=== PATIENT | male | born 1935 | race African-American/Black ===

== ENCOUNTER 2018-03-17 18:57 | Inpatient (IN) | payer MEDICARE, MEDICAID ==
[~2018-03-17] VITALS: Ht 170.2 cm; Wt 88.5 kg
[~2018-03-17 18:57] MED LIST: AMLO5TAB9 PO; FOLI1TAB16 PO; LEVE500T9 PO; METO-295 PO; QUET100T PO; TAMS0.4C34 PO; THIA100T13 PO
--- NOTE | 2018-03-17 19:16 | NUR ---
PT YAYA FROM THE STREETS; C/O "SEIZURE AND PROSTATE PROBLEMS", REPORT OF SZ TODAY; PT AAOX2-3, RESPIRATIONS EVEN AND UNLABORED, NO SOB, NAD NOTED, PT ON MONITOR. PENDING ER PROVIDER MIRELLA
--- NOTE | 2018-03-17 19:40 | NUR ---
URINE COLLECTED AND SENT TO LAB
[2018-03-17 20:26] LABS: APPEARANCE,URINE Slightly Cloudy (CLEAR); BILIRUBIN,URINE SMALL (NEGATIVE); BLOOD, URINE Trace-lysed Ery/uL (NEGATIVE); COLOR,URINE Yellow (YELLOW); KETONES,URINE Trace (NEGATIVE); LEUKOCYTE ESTERASE ,URINE Small (NEGATIVE); NITRITE, URINE Negative (NEGATIVE); PH,URINE 5.5 (5.0-8.0); PROTEIN,URINE 30 mg/dl (NEGATIVE); UGLUCOSE Negative (NEGATIVE); UROBILINOGEN,URINE 0.2 EU/dL (0.2)
[2018-03-17] MEDS ORDERED: LEVETIRACETAM (500MG) 500 MG/5 ML VIAL IV ONE (20:29)
[2018-03-17] MEDS ORDERED: LEVETIRACETAM (500MG) 500 MG in IV NS 0.9% 100 ML IV SCH (20:30)
[2018-03-17 20:39] LABS: BASOPHILS % (AUTO) 0.4 % (0.0-2.0); EOSINOPHILS % (AUTO) 0.8 % (0.0-6.0); HEMATOCRIT 36 % (39-51); HEMOGLOBIN 11.5 g/dL (13.5-17.5); LYMPHOCYTES # (AUTO) 1.7 /CMM (0.8-4.8); LYMPHOCYTES % (AUTO) 44.9 % (20.0-44.0); MEAN CORPUSCULAR HGB CONC 32 g/dl (31.0-36.0); MEAN CORPUSCULAR VOLUME 100 fL (80-96); MONOCYTES # (AUTO) 0.8 /CMM (0.1-1.30); NEUTROPHILS # (AUTO) 1.2 /CMM (1.8-8.9); NEUTROPHILS % (AUTO) 32.9 % (43.0-81.0); PLATELET COUNT (AUTO) 183 /CMM (150-450); RED BLOOD CELL COUNT(AUTO) 3.61 MIL/uL (4.5-6.0); WHITE BLOOD COUNT (AUTO) 3.8 K/uL (4.3-11.0)
[2018-03-17 20:58] LABS: ALANINE AMINOTRANSFERASE 52 U/L (12-78); ALCOHOL, BLOOD < 3 mg/dL (0-0); ALKALINE PHOSPHATASE 70 U/L (46-116); ASPARTATE AMINOTRANSFERASE 85 U/L (15-37); BILIRUBIN,DIRECT 0.3 mg/dL (0.0-0.2); BILIRUBIN,TOTAL 0.8 mg/dL (0.2-1.0); CALCIUM, SERUM 8.7 mg/dL (8.5-10.1); CARBON DIOXIDE 23 mmol/L (21-32); CHLORIDE 104 mmol/L (98-107); CREATININE 1.1 mg/dL (0.6-1.3); GLUCOSE 90 mg/dL (74-106); POTASSIUM 3.5 mmol/L (3.5-5.1); SODIUM SERUM 136 mmol/L (136-145); TOTAL PROTEIN, SERUM 7.4 g/dL (6.4-8.2); UREA NITROGEN, BLOOD 17 mg/dL (7-18)
[2018-03-17 21:05] LABS: ACETAMINOPHEN 0 ug/ml (10-30); SALICYLATE 0.9 mg/dL (2.8-20.0)
[2018-03-17 21:10] LABS: BACTERIA,URINE 2+ /HPF (None Seen)
[2018-03-17 21:19] LABS: BAND % (MANUAL) 1 % (0.0-5.0); LYMPHOCYTES % (MANUAL) 36 % (16-48); MONOCYTES % (MANUAL) 14 % (0-11.0); NEUTROPHILS % (MANUAL) 46 (42-76); REACTIVE LYMPHOCYTES 3 % (0-0)
[2018-03-17] MEDS ORDERED: PIPERACILLIN /TAZOBACTAM 3.375 G VIAL IV ONE (21:58)
--- NOTE | 2018-03-17 21:59 | NUR ---
Pt is assigned to [facility]#: 311-1, DX: Seizure/UTI, and accepting MD: Dr Delcid.
[2018-03-17] MEDS ORDERED: PIPERACILLIN /TAZOBACTAM 3.375 G in IV D5W 50 ML IV ONE (22:00)
--- NOTE | 2018-03-17 22:31 | NUR ---
REPORT GIVEN TO KELL HEALY FOR MARIANN
[2018-03-17 22:45] VITALS: BP 128/71
--- NOTE | 2018-03-17 22:45 | NUR ---
RECEIVED PATIENT FROM ER FOR DX SEIZURE; UTI. PATIENT AO X 2, ABLE TO MAKE NEEDS KNOWN. NO ACUTE DISTRESS NOTED. IV PATENT, INTACT; FLUSHED. SKIN INTACT. PATIENT REFUSING TELE BOX AT THIS TIME. SAFETY REMINDERS GIVEN. ON LOW BED WITH BILATERAL UPPER SIDE RAILS UP. CALL SOLARES WITHIN EASY REACH. WILL CONTINUE TO MONITOR. WAITING FOR ADMISSION ORDERS.
--- NOTE | 2018-03-17 22:52 | NUR ---
PT TRANSFERRED TO ROOM 311-1 TELE VIA ACLS PROTOCOL
[2018-03-17 23:00] VITALS: BP 128/71
[2018-03-18] MEDS ORDERED: MAGNESIUM HYDROXIDE 30 ML UDC PO PRN (01:00)
[2018-03-18] MEDS ORDERED: ACETAMINOPHEN 325 MG TABLET PO PRN (01:00)
[2018-03-18] MEDS ORDERED: HYDROCODONE/APAP 5/325MG 1 EACH TABLET PO PRN (01:00)
[2018-03-18] MEDS ORDERED: Z GUARD REMEDY 2 OZ OINT TP PRN (01:00)
[2018-03-18] MEDS ORDERED: ONDANSETRON HCL/PF 4 MG/2 ML VIAL IVP PRN (01:00)
[2018-03-18] MEDS ORDERED: CEFTRIAXONE 1 G VIAL ONE ×2 (02:09)
[2018-03-18] MEDS ORDERED: CEFTRIAXONE 1 G in IV D5W 50 ML IV SCH (02:30)
--- NOTE | 2018-03-18 02:45 | NUR ---
PATIENT AGREED TO HAVE TELE BOX APPLIED. TELE READING SINUS RHYTHM HR 75.
--- NOTE | 2018-03-18 06:10 | NUR ---
PATIENT ASLEEP, EASILY AROUSABLE. RESPIRATIONS EVEN. NO SIGNS OF PAIN NOTED. DUE MED GIVEN WITH NO ASE NOTED. NEEDS ATTENDED. KEPT CLEAN, DRY, AND COMFORTABLE. SAFETY PRECAUTIONS AND COMFORT MEASURES IN PLACE. WILL GIVE REPORT TO DAY SHIFT FOR CONTINUITY OF CARE.
[2018-03-18 06:27] LABS: BASOPHILS % (AUTO) 0.4 % (0.0-2.0); EOSINOPHILS % (AUTO) 1.2 % (0.0-6.0); HEMATOCRIT 33 % (39-51); HEMOGLOBIN 10.9 g/dL (13.5-17.5); LYMPHOCYTES # (AUTO) 1.7 /CMM (0.8-4.8); LYMPHOCYTES % (AUTO) 49.5 % (20.0-44.0); MEAN CORPUSCULAR HGB CONC 33 g/dl (31.0-36.0); MEAN CORPUSCULAR VOLUME 96 fL (80-96); MONOCYTES # (AUTO) 0.7 /CMM (0.1-1.30); MONOCYTES % (AUTO) 21.7 % (2.0-12.0); NEUTROPHILS # (AUTO) 0.9 /CMM (1.8-8.9); NEUTROPHILS % (AUTO) 27.2 % (43.0-81.0); PLATELET COUNT (AUTO) 178 /CMM (150-450); WHITE BLOOD COUNT (AUTO) 3.4 K/uL (4.3-11.0)
--- NOTE | 2018-03-18 07:10 | NUR ---
RN OPENING NOTES RECEIVED PATIENT IN BED RESTING. A/OX2-3, ABLE TO MAKE NEED KNOWN. NOT IN ANY FORM OF DISTRESS, NO SOB. DENIED PAIN OR DISCOMFORT AT THIS TIME. IV ACCESS INTACT AND PATENT. KEPT PATIENT SAFE AND COMFROTABLE. SEIZURES PRECAUTIONS INITIATED. BED IN LOW/LOCKED POSITION, SIDERAILS UPX2, CALL LIGHT IN REACH. WILL CONTINUE TO MONIOTR ACCORDINGLY.
[2018-03-18 07:26] LABS: ALANINE AMINOTRANSFERASE 47 U/L (12-78); ALBUMIN 2.5 g/dL (3.4-5.0); ALKALINE PHOSPHATASE 61 U/L (46-116); ASPARTATE AMINOTRANSFERASE 75 U/L (15-37); BILIRUBIN,TOTAL 0.6 mg/dL (0.2-1.0); CALCIUM, SERUM 8.1 mg/dL (8.5-10.1); CARBON DIOXIDE 24 mmol/L (21-32); CHLORIDE 105 mmol/L (98-107); CREATININE 1.1 mg/dL (0.6-1.3); GLUCOSE 96 mg/dL (74-106); MAGNESIUM 1.5 mg/dL (1.8-2.4); PHOSPHORUS 2.5 mg/dL (2.5-4.9); POTASSIUM 3.4 mmol/L (3.5-5.1); SODIUM SERUM 138 mmol/L (136-145); TOTAL PROTEIN, SERUM 6.5 g/dL (6.4-8.2); UREA NITROGEN, BLOOD 14 mg/dL (7-18)
[2018-03-18 08:00] VITALS: BP 143/88
[2018-03-18 08:14] LABS: CHOLESTEROL 149 mg/dL (<200); HDL CHOLESTEROL 73 mg/dL (40-60); LDL 72 mg/dL (0-99); THYROID STIMULATING HORMONE 1.359 uIU/mL (0.358-3.74); TRIGLYCERIDES 67 mg/dL (30-150)
[2018-03-18 08:33] LABS: FREE PSA 0.08 ng/mL (0.00-45); PROSTATE SPECIFIC ANTIGEN SCR 0.44 ng/mL (0.00-4.00)
[2018-03-18] MEDS: FOLIC ACID 1 MG TABLET PO SCH (08:48)
[2018-03-18] MEDS: DOCUSATE SODIUM 100 MG CAPSULE PO SCH ×2 (08:48→16:35)
[2018-03-18] MEDS: LEVETIRACETAM SOL (5 ML) 100 MG/ML UDC PO SCH ×2 (08:48→21:05)
[2018-03-18] MEDS: PANTOPRAZOLE 40 MG TABLET.DR PO SCH (08:48)
[2018-03-18] MEDS: THIAMINE HCL 100 MG TABLET PO SCH (08:50)
[2018-03-18] MEDS: AMLODIPINE BESYLATE 5 MG TABLET PO SCH (08:50)
[2018-03-18] MEDS ORDERED: POTASSIUM CHLORIDE 20 MEQ TAB.PRT.SR PO SCH (11:30)
[2018-03-18] MEDS: Magnesium 1GM/D5W 100ML PREMIX 100 ML IV SCH ×2 (11:58→13:09)
[2018-03-18 16:00] VITALS: BP 134/69
--- NOTE | 2018-03-18 18:00 | NUR ---
RN NOTES IV ACCESS ON RIGHT AC WAS NOT PATENT, NOT FLUSHING. REMOVED IV ACCESS, APPLIED PRESSURE, NO BLEEDING, NO COMPLICATIONS. ATTEMPTED TO REINSERT IV ACCESS 2X BUT COULDNT GET THE VEIN. PATIENT REFUSED 3RD ATTEMPT STATING COME BACK LATER. WILL ENDORSED INSERTION TO HEARING AID DISPENSER RN.
--- NOTE | 2018-03-18 19:00 | NUR ---
RN MS NOTES RECEIVED PATIENT IN BED AWAKE ALERT AND ORIENTED X 2-3, RESPIRATIONS EVEN AND UNLABORED WITH EQUAL RISE AND FALL OF CHEST. SEIZURE PRECAUTIONS IN PLACE,SAFETY PRECAUTIONS IN PLACE, LOW BED AND LOCKED, CALL ALARM KEPT WITHIN REACH, FLUIDS OFFERED URINAL OFFERED, IV SITE TO LEFT FA #22G INTACT AND PATENT INSERTED, ORIENTED TO STAFF AND CALL LIGHT REMAINS COMFORTABLE AT THIS TIME, ALL NEEDS ATTENDED WILL CONTINUE TO MONITOR AND ENDORSE TO NEXT SHIFT. Addendum: 03/18/18 at 2313 by FINN ZENDEJAS RN RN OPENING NOTES
--- NOTE | 2018-03-18 19:13 | NUR ---
RN CLOSING NOTES PATIENT IN STABLE CONDITION. ALL NEEDS ATTENDED AND PROVIDED. ALL DUE MEDICATIONS GIVEN ORDERED. KEPT PATENT SAFE AND COMFORTABLE. BED IN LOW/LOCKED POSITION, SIDERAILS UPX2, CALL LIGHT IN REACH. WILL CONTINUE TO MONITOR ACCORDINGLY.
--- NOTE | 2018-03-18 19:57 | NUR ---
RN MS NOTES PATIENT COMPLAINT OF PAIN TO GENERALIZED BODY UNABLE TO SCALE. PATIENT YELLING OUT "PAIN". REQUESTING FOR PAIN MEDICATION NORCO 5/325MG OFFERED AND GIVEN ORDERED VS WNL 107/67,76,18,98%RA WILL CONTINUE TO MONITOR FOR EFFECTIVENESS.
[2018-03-18 20:00] VITALS: BP 107/67
[2018-03-18] MEDS: QUETIAPINE FUMARATE 100 MG TABLET PO SCH (21:05)
[2018-03-18] MEDS: TAMSULOSIN 0.4 MG CAP.SR.24H PO SCH (21:05)
--- NOTE | 2018-03-19 06:33 | NUR ---
RN MS CLOSING NOTES PATIENT IN BED SLEEPING BUT EASILY AWAKENED ALERT AND ORIENTED X 2-3, RESPIRATIONS EVEN AND UNLABORED WITH EQUAL RISE AND FALL OF CHEST. SEIZURE PRECAUTIONS IN PLACE,SAFETY PRECAUTIONS IN PLACE, LOW BED AND LOCKED, CALL ALARM KEPT WITHIN REACH, FLUIDS OFFERED URINAL OFFERED, IV SITE TO LEFT FA #22G INTACT AND PATENT INSERTED, BED ALARM ON. URINAL OFFERED REPOSITIONED, KEPT CLEAN CALL LIGHT REMAINS WITHIN REACH COMFORTABLE AT THIS TIME, ALL NEEDS ATTENDED WILL CONTINUE TO MONITOR AND ENDORSE TO NEXT SHIFT.
[2018-03-19 07:31] LABS: CALCIUM, SERUM 8.2 mg/dL (8.5-10.1); CARBON DIOXIDE 28 mmol/L (21-32); CHLORIDE 106 mmol/L (98-107); CREATININE 1.1 mg/dL (0.6-1.3); GLUCOSE 91 mg/dL (74-106); MAGNESIUM 1.7 mg/dL (1.8-2.4); POTASSIUM 3.5 mmol/L (3.5-5.1); SODIUM SERUM 139 mmol/L (136-145); UREA NITROGEN, BLOOD 14 mg/dL (7-18)
[2018-03-19 08:00] VITALS: BP 120/62
[2018-03-19] MEDS: FOLIC ACID 1 MG TABLET PO SCH (08:58)
[2018-03-19] MEDS: DOCUSATE SODIUM 100 MG CAPSULE PO SCH ×2 (08:58→17:00)
[2018-03-19] MEDS: AMLODIPINE BESYLATE 5 MG TABLET PO SCH (08:58)
[2018-03-19] MEDS: THIAMINE HCL 100 MG TABLET PO SCH (08:58)
[2018-03-19] MEDS: LEVETIRACETAM SOL (5 ML) 100 MG/ML UDC PO SCH ×2 (08:58→21:00)
[2018-03-19] MEDS: PANTOPRAZOLE 40 MG TABLET.DR PO SCH (09:02)
[2018-03-19] MEDS: Magnesium 1GM/D5W 100ML PREMIX 100 ML IV SCH ×2 (10:01→12:04)
--- NOTE | 2018-03-19 11:22 | NUR ---
Social service consult requested by Dr. Delcid for homelessness. Pt. is a 82 year old -Citizen Of [place] male who was admitted to [facility] for Seizures. SW attempted to meet with the pt., however, pt. is not cooperating at this time. SW to come back at a later time to assess when pt. is more cooperative.
--- NOTE | 2018-03-19 14:46 | NUR ---
PATIENT WAS UNCOOPERATIVE WITH DUPLEX VENOUS US. PATIENT WAS YELLING "GET OUT NOW!!". US TECH WILL COME BACK LATER. Addendum: 03/19/18 at 1450 by BARBARA CHAVARRIA EXPLAINED SEVERAL TIMES BUT STILL WONT COOPERATE.
[2018-03-19 16:00] VITALS: BP 116/63
--- NOTE | 2018-03-19 19:00 | NUR ---
RN MS OPENING NOTES RECEIVED PATIENT IN BED AWAKE ALERT AND ORIENTED X 2, RESPIRATIONS EVEN AND UNLABORED WITH EQUAL RISE AND FALL OF CHEST. SEIZURE PRECAUTIONS IN PLACE,SAFETY PRECAUTIONS IN PLACE, LOW BED AND LOCKED, CALL ALARM KEPT WITHIN REACH, FLUIDS OFFERED URINAL OFFERED, IV SITE TO LEFT FA #22G SL NO REDNESS NO INFILTRATION PRESENT, ORIENTED TO STAFF AND CALL LIGHT REMAINS COMFORTABLE AT THIS TIME BED LOW AND LOCKED BED ALARM IN PLACE, ALL NEEDS ATTENDED WILL CONTINUE TO MONITOR AND ATTEND TO NEEDS.
--- NOTE | 2018-03-19 19:33 | NUR ---
RN CLOSING NOTES PATIENT IN STABLE CONDITION. ALL NEEDS ATTENDED AND PROVIDED. ALL DUE MEDICATIONS ADMINISTERED ORDERED. KEPT PATIENT SAFE AND COMFORTABLE. BED IN LOW/LOCKED POSITION, SIDERAILS UPX2, CALL LIGHT IN REACH. ENDORSED TO NIGHT RN FOR MARIANN.
--- NOTE | 2018-03-19 19:34 | NUR ---
RN MS NOTES CALLED AND SPOKE TO PHARMACY REGARDING ROCEPHIN AND NO SET SCHEDULED TIME TO GIVE AND MED UNAVAILABLE AT THIS TIME, PER PHARM WILL SCHEDULE AND BRING MED.
[2018-03-19 20:00] VITALS: BP 110/59
[2018-03-19] MEDS ORDERED: CEFTRIAXONE 1 G in IV D5W 50 ML IV SCH (20:00)
--- NOTE | 2018-03-19 20:00 | NUR ---
RN MS NOTES PATIENT REFUSED ANTIBIOTIC ROCEPHIN ADMINISTRATION X 3, EXPLAINED RISKS AND BENEFITS PATIENT STATED." I DONT WANT IT!"
--- NOTE | 2018-03-19 21:00 | NUR ---
RN MS NOTES PATIENT REFUSED KEEPRA X 3, EXPLAINED RISKS AND BENEFITS PATIENT YELLING OUT." I DONT WANT IT, KEEP IT!"
[2018-03-19] MEDS: QUETIAPINE FUMARATE 100 MG TABLET PO SCH (21:23)
[2018-03-19] MEDS: TAMSULOSIN 0.4 MG CAP.SR.24H PO SCH (21:23)
--- NOTE | 2018-03-19 21:30 | NUR ---
RN MS NOTES PATIENT REFUSED FLOMAX AND SEROQUEL X 3, EXPLAINED RISKS AND BENEFITS PATIENT YELLING OUT." I DONT WANT IT, KEEP IT!"
--- NOTE | 2018-03-20 06:20 | NUR ---
RN MS CLOSING NOTES PATIENT IN BED SLEEPING BUT EASILY AROUSABLE, RESPIRATIONS EVEN AND UNLABORED WITH EQUAL RISE AND FALL OF CHEST, LEFT FA #22 SL IV SITE INTACT, AND PATENT, NO REDNESS, NO INFILTRATION PRESENT, URINAL AND PERINEAL CARE OFFERED, SAFETY PRECAUTIONS IN PLACE ALL NEEDS ATTENDED, LOW BED AND LOCKED, CALL ALARM IN PLACE, REMAINS COMFORTABLE, WILL CONTINUE TO MONITOR AND ENDORSE TO NEXT SHIFT.
--- NOTE | 2018-03-20 07:15 | NUR ---
MS RN INITIAL NOTES Report received at bedside. Patient received in bed, sleeping comfortably, easily aroused. Denies any pain at the moment. No SOB/labored breathing noted. Not in any apparent distress. Safety measures in place. Will continue to monitor and assess patient
[2018-03-20 07:42] LABS: CALCIUM, SERUM 8.1 mg/dL (8.5-10.1); CARBON DIOXIDE 25 mmol/L (21-32); CHLORIDE 104 mmol/L (98-107); CREATININE 1.1 mg/dL (0.6-1.3); GLUCOSE 96 mg/dL (74-106); MAGNESIUM 1.7 mg/dL (1.8-2.4); POTASSIUM 3.8 mmol/L (3.5-5.1); SODIUM SERUM 137 mmol/L (136-145); UREA NITROGEN, BLOOD 16 mg/dL (7-18)
[2018-03-20 08:00] VITALS: BP 107/55
[2018-03-20] MEDS: PANTOPRAZOLE 40 MG TABLET.DR PO SCH (08:17)
[2018-03-20] MEDS: THIAMINE HCL 100 MG TABLET PO SCH (08:23)
[2018-03-20] MEDS: DOCUSATE SODIUM 100 MG CAPSULE PO SCH (08:23)
[2018-03-20 08:24] VITALS: BP 107/55
[2018-03-20] MEDS: FOLIC ACID 1 MG TABLET PO SCH (08:24)
[2018-03-20] MEDS: AMLODIPINE BESYLATE 5 MG TABLET PO SCH (08:24)
[2018-03-20] MEDS: LEVETIRACETAM SOL (5 ML) 100 MG/ML UDC PO SCH (08:24)
[2018-03-20] MEDS: Magnesium 1GM/D5W 100ML PREMIX 100 ML IV SCH ×2 (08:55→10:52)
--- NOTE | 2018-03-20 11:15 | NUR ---
MS RN NOTES Patient verbalized the desire to leave AMA. Requested for patient to stay. MD aware: Ordered for psych eval and consult.
--- NOTE | 2018-03-20 11:19 | NUR ---
MS RN NOTES Spoke with Massimo from [employer] and confirm receipt of faxed face sheet for psych consult and eval.
--- NOTE | 2018-03-20 12:52 | NUR ---
SW attempted to speak with pt. again today. Pt. communicated with SW by nodding his head yes or no when SW was asking questions. Pt. states he is homeless. Pt. denies drugs and alcohol use. Pt. did not state how long he has been homeless or where he has been staying in the streets. When SW inquired with pt. if he is able to walk, pt. shrugged his shoulders but would not speak. SW inquired with pt. if he would like placement. Pt. nodded his head "yes." BRUNILDA updated major case detective Marychuy Martin regarding aforementioned information.
--- NOTE | 2018-03-20 14:55 | NUR ---
BRUNILDA received a call from pt's RN stating that pt. wants to leave AMA. BRUNILDA met with pt. bedside. Pt. is alert and oriented x 4. Pt. is talking and ambulating with a cane. Pt. earlier refused to speak to SW and only communicated with head nods. SW encouraged pt. to stay, however pt. is adamant about leaving. BRUNILDA gave pt. copy of [facility] [id number]. Pt. states he wants to go and get his medications. BRUNILDA informed pt. he can get his medication here at the hospital if he continues to stay and not leave AMA. Pt. is adamant on leaving AMA. BRUNILDA gave pt. warm clothing. Homeless Patient Waiver Form was signed by the pt. and placed in pt's chart.
--- NOTE | 2018-03-20 15:40 | NUR ---
MS RN - AMA NOTES Patient is very adamant about leaving against medical advice (AMA). Instructed and requested to stay a little longer until MD (Psych MD) comes to see him before leaving but patient refused, acting out and yelling that he wants to leave. Patient left at 1510. For precaution, IV cath removed with cath tip intact and no bleeding noted AND ID band removed. boning room worker was advised that patient is determined to leave AMA. boning room worker came to see the patient, provided resources and had homeless waiver signed by patient. Exit care provided to patient and discharge paper signed. Explained risks vs benefits. Patient teaching provided and emphasized. Patient still determined to leave. Belongings with patient: belongings form signed. MD made aware. Charge Nurse made aware. Cafeteria Server aware. Patient not in any apparent distress. Assisted to changed.
--- NOTE | 2018-03-20 17:07 | NUR ---
Incident report done.
[2019-03-18] MEDS ORDERED: CEFTRIAXONE 1 G in IV D5W 50 ML IV SCH (22:00)
== END 2018-03-20 15:00 | disposition left against medical advice (07) | DRG 53 ==
LOC: ER 19:02 → TELE 22:02 → MED 03-18 10:45
PROVIDERS: ADMIT Internal Medicine; ATTEND Internal Medicine
DX: G40.909 Epilepsy, unspecified, not intractable, without status epilepticus (principal); E43 Unspecified severe protein-calorie malnutrition; E11.42 Type 2 diabetes mellitus with diabetic polyneuropathy; D68.59 Other primary thrombophilia; D53.9 Nutritional anemia, unspecified; F20.9 Schizophrenia, unspecified; I67.2 Cerebral atherosclerosis; N39.0 Urinary tract infection, site not specified; B96.89 Other specified bacterial agents as the cause of diseases classified elsewhere; Z16.11 Resistance to penicillins; N40.0 Benign prostatic hyperplasia without lower urinary tract symptoms; Z87.440 Personal history of urinary (tract) infections; Z59.0 Homelessness; F17.210 Nicotine dependence, cigarettes, uncomplicated; M19.90 Unspecified osteoarthritis, unspecified site; F31.9 Bipolar disorder, unspecified; Z68.30 Body mass index [BMI] 30.0-30.9, adult; Z74.09 Other reduced mobility; F10.11 Alcohol abuse, in remission; Y90.0 Blood alcohol level of less than 20 mg/100 ml; R60.0 Localized edema; E53.8 Deficiency of other specified B group vitamins; I10 Essential (primary) hypertension; Z87.820 Personal history of traumatic brain injury
CPT/HCPCS: 36415; 70450-TC; 71045-TC; 80048-TC; 80053-TC; 80061-TC; 80076-TC; 80305; 81000-TC; 83735-TC; 84100-TC; 84153-TC; 84154-TC; 84443-TC; 84484-TC; 85025-TC; 87081-TC; 87086-TC; 87186-TC; 93970-TC; G0378; G0480; J0696; J1953; J2543; J3475; J7030; J7050; J7060

== ENCOUNTER 2018-03-21 08:48 | Emergency (ER) | payer MEDICARE, MEDICAID ==
[~2018-03-21] VITALS: Ht 170.2 cm; Wt 63.5 kg
--- NOTE | 2018-03-21 09:04 | NUR ---
pt singed out AMA at 1500 yesterday , per pt was given papers and [place] went there for the night and states " didnt' work out'. PT AAOX3, VSS. DENIES ANY DISCOMFORT @ THIS TIME. PT SEEN & EVAL'D BY DR. COOK & WILL CONT TO MONITOR.
--- NOTE | 2018-03-21 11:08 | NUR ---
BRUNILDA received a call from Abdifatah in ED requesting for SW to see the pt. for homelessness. Pt. is a 82 year old male who was admitted to [facility] on 03/17/18 for epilepsy. Pt. left yesterday AMA from inpatient admission. SW had tried several times to encourage pt. to stay, however pt. was adamant on leaving. BRUNILDA met with pt. bedside. Pt. was lying in the bed with his cane bedside. Pt. is alert and oriented x 3. Pt. stated he did not like the senior care. BRUNILDA inquired with pt. if he receives any SSI and pt. did not reply. BRUNILDA offered pt. homeless senior care resources and [facility] resources, however, pt. declined stating " I have those from yesterday." Pt. elected to go back to streets. Pt. was given a walker, blanket, Tap card and snacks. Homeless Patient Waiver Form was signed by the pt. and placed in pt's chart. Dr. Knight and KELL Steinberg were informed of pt's discharge plan.
--- NOTE | 2018-03-21 11:15 | NUR ---
Patient discharged to home in stable condition. Written and verbal after care instructions given. Patient verbalizes understanding of instruction.
[2018-03-21 11:45] VITALS: BP 118/78
== END 2018-03-21 11:15 | disposition home or self-care (01) ==
LOC: ER 08:50
DX: M79.10 Myalgia, unspecified site (principal); I10 Essential (primary) hypertension; F17.200 Nicotine dependence, unspecified, uncomplicated; Z59.0 Homelessness; Z90.89 Acquired absence of other organs
CPT/HCPCS: 99281; A4606; Z7502

== ENCOUNTER 2019-11-03 08:44 | Inpatient (IN) | payer MEDICARE, MEDICAID ==
[~2019-11-03] VITALS: Ht 177.8 cm; Wt 66.7 kg
--- NOTE | 2019-11-03 08:52 | NUR ---
[email or web address], from [facility], "uncooperative, doesn't want to talk to anyone". Eyes open, but non-verbal at this time, refusing to answer questions.
[2019-11-03 09:32] LABS: BASOPHILS % (AUTO) 0.5 % (0.0-2.0); EOSINOPHILS % (AUTO) 1.3 % (0.0-6.0); HEMATOCRIT 41 % (39-51); HEMOGLOBIN 13.5 g/dL (13.5-17.5); LYMPHOCYTES # (AUTO) 2.1 /CMM (0.8-4.8); LYMPHOCYTES % (AUTO) 44.6 % (20.0-44.0); MEAN CORPUSCULAR HGB CONC 33 g/dl (31.0-36.0); MEAN CORPUSCULAR VOLUME 94 fL (80-96); MONOCYTES # (AUTO) 0.8 /CMM (0.1-1.30); MONOCYTES % (AUTO) 17.8 % (2.0-12.0); NEUTROPHILS # (AUTO) 1.7 /CMM (1.8-8.9); NEUTROPHILS % (AUTO) 35.8 % (43.0-81.0); PLATELET COUNT (AUTO) 228 /CMM (150-450); RED BLOOD CELL COUNT(AUTO) 4.32 MIL/uL (4.5-6.0); WHITE BLOOD COUNT (AUTO) 4.6 K/uL (4.3-11.0)
[2019-11-03 09:44] LABS: CALCIUM, SERUM 9.4 mg/dL (8.5-10.1); CARBON DIOXIDE 24 mmol/L (21-32); CHLORIDE 105 mmol/L (98-107); CREATININE 1.1 mg/dL (0.6-1.3); GLUCOSE 85 mg/dL (74-106); SODIUM SERUM 137 mmol/L (136-145); UREA NITROGEN, BLOOD 26 mg/dL (7-18)
--- NOTE | 2019-11-03 09:50 | NUR ---
PT TAKEN TO CT
[2019-11-03 09:51] LABS: ALANINE AMINOTRANSFERASE 58 U/L (12-78); ALBUMIN 2.6 g/dL (3.4-5.0); ALCOHOL, BLOOD < 3 mg/dL (0-0); ALKALINE PHOSPHATASE 163 U/L (46-116); ASPARTATE AMINOTRANSFERASE 101 U/L (15-37); BILIRUBIN,DIRECT 0.3 mg/dL (0.0-0.2); BILIRUBIN,TOTAL 0.6 mg/dL (0.2-1.0); TOTAL PROTEIN, SERUM 8.5 g/dL (6.4-8.2)
[2019-11-03 09:52] LABS: ACETAMINOPHEN 0 ug/ml (10-30); SALICYLATE 1.8 mg/dL (2.8-20.0)
[2019-11-03 10:08] LABS: APPEARANCE,URINE CLOUDY (CLEAR); COLOR,URINE YELLOW (YELLOW); UGLUCOSE NEGATIVE (NEGATIVE)
[2019-11-03 10:09] LABS: BILIRUBIN,URINE NEGATIVE (NEGATIVE); BLOOD, URINE TRACE Ery/uL (NEGATIVE); KETONES,URINE NEGATIVE (NEGATIVE); PH,URINE 7.5 (5.0-8.0); PROTEIN,URINE 1+ mg/dl (NEGATIVE)
[2019-11-03 10:10] LABS: LEUKOCYTE ESTERASE ,URINE 2+ (NEGATIVE); NITRITE, URINE POSITIVE (NEGATIVE)
[2019-11-03] MEDS ORDERED: CEFTRIAXONE 1GM BAG (ER ONLY) 50 ML IV ONE (10:21)
[2019-11-03] MEDS ORDERED: CEFTRIAXONE 1GM BAG (ER ONLY) 1 GM/50 ML PIGGYBACK IV ONE (10:30)
--- NOTE | 2019-11-03 10:46 | NUR ---
CALLED [facility]. BENCH CARPENTER WAS PAGED
[2019-11-03 10:49] LABS: LYMPHOCYTES % (MANUAL) 52 % (16-48); NEUTROPHILS % (MANUAL) 32 (42-76)
[2019-11-03 10:50] LABS: MONOCYTES % (MANUAL) 16 % (0-11.0)
[2019-11-03 10:57] LABS: WBC,URINE TOO NUMEROUS TO COUN /HPF (0-3)
[2019-11-03 10:58] LABS: BACTERIA,URINE Few /HPF (None Seen); SQUAMOUS EPITHELIAL CELL,UR Few /HPF (None Seen)
[2019-11-03] MEDS ORDERED: TEMA15CA PO (11:27)
[2019-11-03] MEDS ORDERED: FINA5TAB11 PO (11:27)
[2019-11-03] MEDS ORDERED: QUET50TA PO (11:27)
[2019-11-03] MEDS ORDERED: LOSA25TA27 PO (11:27)
[2019-11-03] MEDS ORDERED: DICY10CA13 PO (11:27)
[2019-11-03] MEDS ORDERED: DOCU-270 PO (11:27)
[2019-11-03] MEDS ORDERED: NIFE-35 PO (11:27)
[2019-11-03] MEDS ORDERED: OMEP20TA5 PO (11:27)
[2019-11-03] MEDS ORDERED: IBUP-1953 PO (11:27)
[2019-11-03] MEDS ORDERED: NITR100C PO (11:27)
[2019-11-03] MEDS ORDERED: SENN-175 PO (11:27)
--- NOTE | 2019-11-03 11:38 | NUR ---
covid swab sent to lab
[2019-11-03 12:40] VITALS: BP 161/86
--- NOTE | 2019-11-03 12:40 | NUR ---
Received patient via gurney. Patient present confused and disoriented; able to make needs known. Skin assessed and intact. IV to the left arm g 20 h/l , flushing well. No belongings. Patient oriented to room and educated to use call light for assistance, reinforcement needed. Bed alarm activated. SAfety precautions implemented. Adm. orders carried out.
--- NOTE | 2019-11-03 12:40 | NUR ---
report given to Arelis CASTORENA for kenny.
--- NOTE | 2019-11-03 12:46 | NUR ---
Wheeled patient via gurney accompanied by RN in no distress. RN at bedside to assume care.
[2019-11-03 13:00] VITALS: BP 161/86
[2019-11-03] MEDS ORDERED: TEMAZEPAM 15 MG CAPSULE PO PRN (13:00)
[2019-11-03] MEDS ORDERED: IBUPROFEN 600 MG TABLET PO PRN (13:00)
[2019-11-03 16:00] VITALS: BP 146/77
--- NOTE | 2019-11-03 16:00 | NUR ---
Patient became very aggressive; he is throwing things at ELEVATOR CONSTRU[employer] and yelling. Noted with trouble urinating and looks like in pain. DR. Wyman notified
--- NOTE | 2019-11-03 16:20 | NUR ---
Ativan 1mg IV Q4hr PRN ; Morphine 2 mg IV Q4hr PRN ordered per dr. Wyman
--- NOTE | 2019-11-03 16:28 | NUR ---
9:45am Geometry Teacher met with this patient at bedside in the ED. Patient was transferred from [facility]. Patient was alert and oriented x2. Patient was able to confirm where he was at [facility]. Patient was not able to provide information prior to that. Patient had a low voice and was redirected by this SW to provide any information possible. This patient reported that he had auditory and visual hallucination in the past stating they were different things. This SW to return when the patient is more alert and oriented to provide more information.
[2019-11-03] MEDS ORDERED: MORPHINE SULFATE INJ 2 MG/ML DISP.SYRIN IV PRN (16:30)
[2019-11-03] MEDS: DOCUSATE SODIUM 100 MG CAPSULE PO SCH (17:00)
[2019-11-03] MEDS: DICYCLOMINE HCL 10 MG CAPSULE PO SCH (18:00)
--- NOTE | 2019-11-03 18:44 | NUR ---
Patient is resting in bed at this time.Patient is confused. All needs attended. Safety precautions implemented and bed alarm activated. Will endorse to next shift .
--- NOTE | 2019-11-03 19:09 | NUR ---
MS/RN OPENING NOTES: RECEIVED PT AWAKE IN BED. A/OX1-2. SATURATING WELL ON RA. BREATHING EVEN AND UNLABORED. NO SOB NOTED, NO COMPLAINS OF PAIN AT THIS TIME. PER DAY SHIFT RN, PT IS NON COMPLIANT WITH MEDS AND TENDS TO GET AGITATED AND AGGRESSIVE. IN A CALM MANNER AT THIS TIME. USES THE URINAL. AMBULATORY WITH ASSIST. IV ON THE LEFT ARM #20G INTACT AND PATENT. SAFETY MEASURES ARE IN PLACE. BED IN LOW, LOCKED POSITION WITH SR UP X2. WILL MONITOR BEHAVIOR AND CONTINUE PLAN OF CARE THROUGHOUT THE SHIFT.
--- NOTE | 2019-11-03 20:03 | NUR ---
MS/RN NOTES: PT. REFUSES VITAL SIGNS. STARTED YELLING WHEN TOUCHED. BECAME AGGRESSIVE, EDUCATED ON RISKS AND BENEFITS AND PT STILL REFUSED.
--- NOTE | 2019-11-03 20:10 | NUR ---
Admitted from [facility] [phone]. Reports indicated that patient is homeless, unable to interview due to patient is not cooperative, refused to talk. Will refer to pediatric social worker in for homeless resources. Addendum: 11/03/19 at 2011 by ANAND HERNANDEZ RN Amended: Links added.
[2019-11-03] MEDS: LEVETIRACETAM (250 MG) 250 MG TABLET PO SCH (21:11)
[2019-11-03] MEDS: SENNOSIDES 8.6 MG TABLET PO SCH (21:11)
[2019-11-03] MEDS: TAMSULOSIN 0.4 MG CAP.SR.24H PO SCH (21:11)
--- NOTE | 2019-11-03 21:50 | NUR ---
MS/RN NOTES: PATIENT ABLE TO TAKE ALL DUE MEDS ORDERED. TOLERATED WELL. NOT AGITATED AT THIS TIME. WILL CONT PLAN OF CARE AND CONT TO MONITOR.
--- NOTE | 2019-11-04 00:06 | NUR ---
MS/RN NOTES: PATIENT REFUSED TO TAKE BENTYL 10MG 1CAP. EDUCATED ON THE RISKS AND BENEFITS X3. STILL REFUSED. WASTED MED VIA PYXIS. WILL CONT PLAN OF CARE AND CONT TO MONITOR
[2019-11-04 02:00] VITALS: BP 156/87
[2019-11-04] MEDS: DICYCLOMINE HCL 10 MG CAPSULE PO SCH ×4 (06:00→18:00)
--- NOTE | 2019-11-04 06:16 | NUR ---
MS/RN NOTES: PATIENT REFUSED TO TAKE BENTYL 10MG 1CAP. EDUCATED ON THE RISKS AND BENEFITS X3. STILL REFUSED. WILL CONT PLAN OF CARE AND CONT TO MONITOR
--- NOTE | 2019-11-04 06:46 | NUR ---
MS/RN CLOSING NOTES: PT. REMAINS AWAKE IN BED. A/OX1. SATURATING WELL ON RA. BREATHING EVEN AND UNLABORED. NO SOB NOTED, NO COMPLAINS OF PAIN AT THIS TIME. PT IS NON COMPLIANT WITH MEDS AND TENDS TO GET AGITATED AND AGGRESSIVE WHEN ASKED TO TAKE MEDS. IV ON THE LEFT ARM #20G INTACT AND PATENT. SAFETY MEASURES ARE IN PLACE. BED IN LOW, LOCKED POSITION WITH SR UP X2. WILL ENDORSE TO DAY SHIFT FOR MARIANN.
--- NOTE | 2019-11-04 07:00 | NUR ---
RN OPENING NOTES RECEIVED PATIENT IN BED RESTING. NOT IN ANY FORM OF DISTRESS. NO SOB. DENIED PAIN OR DISCOMFORT AT THIS TIME. BED IN LOW/LOCKED POSITION.SIDERAILS UPX2,CALL LIGHT IN REACH. WILL CONT TO MONITOR ACCORDINGLY.
[2019-11-04] MEDS: LORAZEPAM INJ 2 MG/ML VIAL IV PRN ×2 (07:50→16:01)
--- NOTE | 2019-11-04 07:50 | NUR ---
RN NOTES PATIENT NOTED GETTING OUT OF BED WITH UNSTEADY GAIT, YELLING, UNCOOPERATIVE, OUT OF CONTROL. CALLED SECURITY. WAS ABLE TO PUT PATIENT IN BED WITH MULTIPLE INSTRUCTIONS. CALLED DR DAKSHA MD GAVE ORDERS FOR RESTRAINTS. BEATRIZ SOFT WRIST RESTRAINTS APPLIED. ATIVAN 1MG IV GIVEN ORDERED FOR AGGRESSION. VSS. WILL MONITOR ACCORDINGLY.
[2019-11-04 08:00] VITALS: BP 161/76
[2019-11-04] MEDS: FINASTERIDE (5 MG) 5 MG TABLET PO SCH (08:38)
[2019-11-04] MEDS: DOCUSATE SODIUM 100 MG CAPSULE PO SCH ×2 (08:39→17:00)
[2019-11-04] MEDS: LEVETIRACETAM (250 MG) 250 MG TABLET PO SCH ×2 (08:39→21:28)
[2019-11-04] MEDS: PANTOPRAZOLE 40 MG TABLET.DR PO SCH (08:44)
[2019-11-04] MEDS ORDERED: NIFEdipine XL (30MG) 30 MG TAB PO SCH (09:00)
[2019-11-04] MEDS: CEFTRIAXONE 1 G in IV D5W 50 ML IV SCH (12:10)
[2019-11-04 16:00] VITALS: BP 149/85
[2019-11-04] MEDS ORDERED: ENOXAPARIN SODIUM 40 MG/0.4 ML DISP.SYRIN SQ SCH ×2 (17:00→21:00)
[2019-11-04] MEDS ORDERED: HALOPERIDOL LACTATE INJ 5 MG/ML VIAL IM PRN (18:00)
--- NOTE | 2019-11-04 18:33 | NUR ---
RN CLOSING NOTES PATIENT IN STABLE CONDITION. ALL NEEDS ATTENDED AND PROVIDED. ALL DUE MEDS GIVEN ORDERED. KEPT PATIENT SAFE AND COMFORTABLE. BED IN LOW/LOCKED POSITION. SIDERAILS UP,CALL LIGHT IN REACH. WILL ENDORSED ACCORDINGLY
--- NOTE | 2019-11-04 19:08 | NUR ---
MS/RN OPENING NOTES: RECEIVED PT AWAKE IN BED. A/OX1-2. SATURATING WELL ON RA. BREATHING EVEN AND UNLABORED. NO SOB NOTED, NO COMPLAINS OF PAIN AT THIS TIME. SOFT WRIST BILATERAL RESTRAINTS NOTED. IN A CALM MANNER AT THIS TIME. WILL MONITOR SKIN HOURLY FOR BREAKDOWNS AND CIRCULATION. IV ON THE LEFT ARM #20G INTACT AND PATENT. SAFETY MEASURES ARE IN PLACE. BED IN LOW, LOCKED POSITION WITH SR UP X2. WILL MONITOR BEHAVIOR AND CONTINUE PLAN OF CARE THROUGHOUT THE SHIFT.
[2019-11-04 20:00] VITALS: BP 164/94
[2019-11-04] MEDS ORDERED: ENOXAPARIN SODIUM 30 MG/0.3 ML DISP.SYRIN SQ SCH (21:00)
[2019-11-04] MEDS: SENNOSIDES 8.6 MG TABLET PO SCH (21:28)
[2019-11-04] MEDS: TAMSULOSIN 0.4 MG CAP.SR.24H PO SCH (21:28)
[2019-11-05] MEDS: DICYCLOMINE HCL 10 MG CAPSULE PO SCH ×4 (06:00→17:09)
--- NOTE | 2019-11-05 07:17 | NUR ---
MS/RN CLOSING NOTES: PT. REMAINS AWAKE IN BED. A/OX1. SATURATING WELL ON RA. BREATHING EVEN AND UNLABORED. NO SOB NOTED, NO COMPLAINS OF PAIN AT THIS TIME. PT IS NON COMPLIANT WITH MEDS AND TENDS TO GET AGITATED AND AGGRESSIVE WHEN ASKED TO TAKE MEDS. IV ON THE LEFT ARM #20G INTACT AND PATENT. SOFT WRIST RESTRAINTS TO BE RENEWED 08. SAFETY MEASURES ARE IN PLACE. BED IN LOW, LOCKED POSITION WITH SR UP X2. WILL ENDORSE TO DAY SHIFT FOR MARIANN.
[2019-11-05] MEDS: PANTOPRAZOLE 40 MG TABLET.DR PO SCH (07:42)
--- NOTE | 2019-11-05 07:45 | NUR ---
M/S RN - Assessment Patient in bed awake, confused, alert to self, reality orientation provided, verbally responsive, denies pain, not in any form of distress, no seizure activity overnight. Saline lock on the left hand is patent and intact with no signs of infiltration. Bilateral soft wrist restraints in place to prevent pulling out peripheral IV. Fall, seizure and aspiration precautions maintained. Will continue with current medical management.
[2019-11-05 08:00] VITALS: BP 157/97
[2019-11-05] MEDS ORDERED: CLONIDINE HCL 0.1 MG TABLET PO PRN (08:00)
[2019-11-05] MEDS: LEVETIRACETAM (250 MG) 250 MG TABLET PO SCH (08:10)
[2019-11-05] MEDS: DOCUSATE SODIUM 100 MG CAPSULE PO SCH (08:10)
[2019-11-05] MEDS: HALOPERIDOL 1 MG TABLET PO SCH ×3 (08:10→16:22)
[2019-11-05] MEDS: FINASTERIDE (5 MG) 5 MG TABLET PO SCH (08:10)
[2019-11-05] MEDS ORDERED: NIFEdipine XL (30MG) 30 MG TAB PO SCH (09:00)
[2019-11-05 09:06] LABS: BASOPHILS % (AUTO) 0.3 % (0.0-2.0); CALCIUM, SERUM 9.6 mg/dL (8.5-10.1); CREATININE 0.9 mg/dL (0.6-1.3); EOSINOPHILS % (AUTO) 0.8 % (0.0-6.0); HEMATOCRIT 42 % (39-51); HEMOGLOBIN 13.8 g/dL (13.5-17.5); LYMPHOCYTES # (AUTO) 1.9 /CMM (0.8-4.8); LYMPHOCYTES % (AUTO) 41.4 % (20.0-44.0); MEAN CORPUSCULAR HGB CONC 33 g/dl (31.0-36.0); MEAN CORPUSCULAR VOLUME 94 fL (80-96); MONOCYTES # (AUTO) 0.9 /CMM (0.1-1.30); MONOCYTES % (AUTO) 20.9 % (2.0-12.0); NEUTROPHILS # (AUTO) 1.7 /CMM (1.8-8.9); NEUTROPHILS % (AUTO) 36.6 % (43.0-81.0); PLATELET COUNT (AUTO) 232 /CMM (150-450); POTASSIUM 3.5 mmol/L (3.5-5.1); RED BLOOD CELL COUNT(AUTO) 4.42 MIL/uL (4.5-6.0); WHITE BLOOD COUNT (AUTO) 4.5 K/uL (4.3-11.0)
[2019-11-05] MEDS ORDERED: NIFE-35 PO (09:51)
[2019-11-05] MEDS ORDERED: HALO1TAB5 PO (09:51)
[2019-11-05] MEDS ORDERED: SULF1TAB48 PO (09:54)
[2019-11-05 10:10] LABS: EOSINOPHILS % (MANUAL) 1 % (0-4); LYMPHOCYTES % (MANUAL) 48 % (16-48); MONOCYTES % (MANUAL) 17 % (0-11.0); NEUTROPHILS % (MANUAL) 34 (42-76)
[2019-11-05] MEDS: CEFTRIAXONE 1 G in IV D5W 50 ML IV SCH (11:31)
--- NOTE | 2019-11-05 13:00 | NUR ---
MS/RN - Notes Patient is awake, bilateral soft wrist restraints was discontinued, calm and cooperative, not removing IV line, no skin breakdown noted. Will continue to monitor closely.
--- NOTE | 2019-11-05 15:30 | NUR ---
MS/RN - Notes Patient is for discharge to [facility] today, p/u time by [facility] ambulance at 18:00. Called report to KELL Mcleod at [facility] [phone], reviewed discharge instructions and she verbalized full understanding and all questions answered to her satisfaction. Patient came in with no belongings. Patient refused pictures to be taken, skin is intact.
--- NOTE | 2019-11-05 15:53 | NUR ---
11:50am This SW was notified by Commercial Horticulture Instructor KELL Silverio that this patient is cleared to be transferred back to [facility]. This SW to fax over clinicals to Ricardo , (fax).
--- NOTE | 2019-11-05 15:53 | NUR ---
1:15pm This SW received a call from [facility] that the patient was accepted to [facility] [address] [place], [place] [address] . Patient will be in the care of Dr. Dowd and Dr. Okeefe. Nursing report to be provided to Moise . This SW to provide this information to patients RN.
--- NOTE | 2019-11-05 15:54 | NUR ---
1:20pm This SW provided KELL Samayoa with information to provide nursing report to [facility] nurse Moise This SW contacted Bi Report Developer KELL Silverio to request assistance in arranging transport for this patient. Bi Report Developer KELL Silverio stated that she would move forward with transport.
[2019-11-05 16:00] VITALS: BP 160/101
[2019-11-05] MEDS: LORAZEPAM INJ 2 MG/ML VIAL IV PRN (16:22)
[2019-11-05] MEDS ORDERED: DOCUSATE SODIUM 250 MG CAPSULE PO SCH (17:00)
[2019-11-05 17:55] VITALS: BP 154/89
--- NOTE | 2019-11-05 18:30 | NUR ---
MS/RN - End of shift summary Patient is more awake and alert, calm, denies pain, no apparent distress, stable on room air, afebrile, no seizure activity noted this shift, BP improved with Clonidine PRN. Saline lock removed on the left hand with catheter tip intact, no redness, no swelling noted at the site. [facility] ambulance called and will be running late ETA 19:00-19:30. Patient made aware of discharge time.
[2019-11-05 18:55] VITALS: BP 136/73
--- NOTE | 2019-11-05 18:55 | NUR ---
MS/RN - Discharge Patient resting comfortably, latest BP 136/73 HR 69, calm, no seizure activity, ate dinner well. Endorsed to ambulance crew accordingly.
== END 2019-11-05 18:55 | DRG 689 ==
LOC: ER 08:46 → MEDSG2 11:58
PROVIDERS: ADMIT Internal Medicine; ATTEND Internal Medicine
DX: N39.0 Urinary tract infection, site not specified (principal); N17.0 Acute kidney failure with tubular necrosis; G93.41 Metabolic encephalopathy; E43 Unspecified severe protein-calorie malnutrition; F17.210 Nicotine dependence, cigarettes, uncomplicated; E86.0 Dehydration; G40.909 Epilepsy, unspecified, not intractable, without status epilepticus; Z59.0 Homelessness; E88.09 Other disorders of plasma-protein metabolism, not elsewhere classified; Z68.21 Body mass index [BMI] 21.0-21.9, adult; F20.9 Schizophrenia, unspecified; N40.1 Benign prostatic hyperplasia with lower urinary tract symptoms; F29 Unspecified psychosis not due to a substance or known physiological condition; N41.9 Inflammatory disease of prostate, unspecified; B95.2 Enterococcus as the cause of diseases classified elsewhere; I10 Essential (primary) hypertension; Z79.899 Other long term (current) drug therapy
CPT/HCPCS: 36415; 70450-TC; 71045-TC; 80048-TC; 80076-TC; 80305; 81000-TC; 82962-TC; 85025-TC; 87081-TC; 87086-TC; 87186-TC; G0378; G0480; J0696; J1650; J2060; J2270; J7060

== ENCOUNTER 2019-11-05 22:42 | Inpatient (IN) | payer MEDICAID, MEDICARE ==
[~2019-11-05] VITALS: Ht 167.6 cm; Wt 58.5 kg
[~2019-11-05 22:42] MED LIST changes: -AMLO5TAB9 PO; +DICY10CA13 PO; +DOCU-270 PO; +FINA5TAB11 PO; -FOLI1TAB16 PO; +HALO1TAB5 PO; +IBUP-1953 PO; +LOSA25TA27 PO; -METO-295 PO; +NIFE-35 PO; +NITR100C PO; +OMEP20TA5 PO; -QUET100T PO; +QUET50TA PO; +SENN-175 PO; +SULF1TAB48 PO; +TEMA15CA PO; -THIA100T13 PO
--- NOTE | 2019-11-05 22:46 | NUR ---
DR JEFFREY AT BEDSIDE FOR EVAL
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
--- NOTE | 2019-11-05 23:00 | NUR ---
BLOOD COLLECTED AND SENT TO LAB
--- NOTE | 2019-11-05 23:07 | NUR ---
COVID SWAB COLLECTED AND SENT TO LAB
--- NOTE | 2019-11-05 23:10 | NUR ---
CALLED NURSING SUP FOR BED
--- NOTE | 2019-11-05 23:11 | NUR ---
PATIENT TAKEN TO CT.
[2019-11-05 23:12] LABS: BASOPHILS # (AUTO) 0.1 /CMM (0.0-0.2); BASOPHILS % (AUTO) 1.1 % (0.0-2.0); EOSINOPHILS % (AUTO) 1.3 % (0.0-6.0); HEMATOCRIT 42 % (39-51); HEMOGLOBIN 13.9 g/dL (13.5-17.5); LYMPHOCYTES # (AUTO) 2.3 /CMM (0.8-4.8); MEAN CORPUSCULAR HGB CONC 33 g/dl (31.0-36.0); MEAN CORPUSCULAR VOLUME 94 fL (80-96); MONOCYTES # (AUTO) 1.2 /CMM (0.1-1.30); MONOCYTES % (AUTO) 21.2 % (2.0-12.0); NEUTROPHILS # (AUTO) 1.8 /CMM (1.8-8.9); NEUTROPHILS % (AUTO) 33.4 % (43.0-81.0); PLATELET COUNT (AUTO) 266 /CMM (150-450); RED BLOOD CELL COUNT(AUTO) 4.45 MIL/uL (4.5-6.0); WHITE BLOOD COUNT (AUTO) 5.4 K/uL (4.3-11.0)
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
--- NOTE | 2019-11-05 23:15 | NUR ---
BED ASSIGNMENT 117-1
[2019-11-05 23:27] LABS: ALANINE AMINOTRANSFERASE 80 U/L (12-78); ALBUMIN 2.8 g/dL (3.4-5.0); ALKALINE PHOSPHATASE 179 U/L (46-116); ASPARTATE AMINOTRANSFERASE 132 U/L (15-37); BILIRUBIN,DIRECT 0.1 mg/dL (0.0-0.2); BILIRUBIN,TOTAL 0.7 mg/dL (0.2-1.0); CALCIUM, SERUM 9.6 mg/dL (8.5-10.1); CARBON DIOXIDE 24 mmol/L (21-32); CHLORIDE 106 mmol/L (98-107); CREATININE 1.2 mg/dL (0.6-1.3); GLUCOSE 123 mg/dL (74-106); POTASSIUM 4.5 mmol/L (3.5-5.1); SODIUM SERUM 140 mmol/L (136-145); TOTAL PROTEIN, SERUM 9.5 g/dL (6.4-8.2); UREA NITROGEN, BLOOD 30 mg/dL (7-18)
--- NOTE | 2019-11-05 23:40 | NUR ---
PATIENT REFUSED TO PROVIDE URINE
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
[2019-11-05 23:54] LABS: LYMPHOCYTES % (MANUAL) 47 % (16-48); MONOCYTES % (MANUAL) 15 % (0-11.0); NEUTROPHILS % (MANUAL) 38 (42-76)
--- NOTE | 2019-11-05 23:54 | NUR ---
DR. SWANN SPEAKING WITH DR. MACIAS (NEURO TOW DRIVER)
--- NOTE | 2019-11-05 23:59 | NUR ---
DR. JEFFREY SPEAKING WITH DR. BRIAN
[2019-11-06] VITALS (7 sets, daily range): BP systolic 140–176; BP diastolic 91–102
--- NOTE | 2019-11-06 00:16 | NUR ---
DR. BRIAN AT BEDSIDE FOR EVALUATION
--- NOTE | 2019-11-06 00:24 | NUR ---
REPORT GIVEN TO LAMINE CASTORENA FOR MARIANN.
--- NOTE | 2019-11-06 00:32 | NUR ---
PATIENT TAKEN TO ASSIGNED ROOM.
[2019-11-06 00:33] LABS: THYROID STIMULATING HORMONE 1.775 uIU/mL (0.358-3.74)
--- NOTE | 2019-11-06 01:00 | NUR ---
SENIOR ORACLE DATABASE ADMINISTRATOR NOTES RECEIVED PT FROM ER VIA AARTI ON RA TOLERATING WELL WITH SPO2 99% PT EYES WAS OPEN BUT WHEN YOU ARE ASKING HIM QUESTION HIS NOT ANSWERING HEAD TO TOE ASSESSMENT DONE, V/S CHECKED BP 147/97 HR 98 RR 20 TEMP 98.3,PUT ON TELE MONITOR WITH READING SINUS TACHY 100, WE TRY TO DO THE [facility] ASSESSMENT BUT PT DIDNT COOPERATE HE ONLY RESPONSE TO PAIN FOR THE DIDNT ANSWER ANY OF MY QUESTIONS DIDNT FOLLOW COMMAND, FOR MOTOR FUNCTION PT DONT GIVE ANY EFFORT TO HOLD HIS HAND OR FEET, HE ONLY SHOUT ON US WHEN WE REMOVE HIS SOCKS AND HE WANT US TO PUT IT BACK THATS THE ONLY REASON WE KNOW THAT HE TALKS, I ALSO TRY SWALLOW TEST BUT PT DIDNT OPEN HIS MOUTH WE ASK MORE QUESTIONS BUT PT DIDNT GIVE ANY ANSWER HE DONT EVEN GAZE ON US HE IS JUST STARING ON US WITH FLAT AFFECT, SAFETY MEASURE INITIATE BED ON LOWEST POSITION AND LOCKED PUT HIM ON DROPLET ISOLATION FOR R/O COVID CALL LIGHT WITHIN REACH WILL CONT TO MONITOR
--- NOTE | 2019-11-06 01:20 | NUR ---
RN NOTES I VISIT PT TO SEE WHAT HE IS DOING AND SAW PT STANDING AND WALKING AND TRY TO GET OUT OF THE ROOM BUT WITH UNSTEADY GAIT, CALL CHARGE NURSE AND WE TALK TO THE PT THAT HE CANNOT GET OUT OF THE ROOM BUT PT IS YELLING AND CURSING US, WE CALL SECURITY FOR HELP TO BRING HIM BACK TO THE BED, AND INFORM MD, BILATERAL WRIST SOFT RESTRAINTS WAS STARTED AND THE DOCTOR ALSO RECOMMEND HIM FOR PSYCH EVAL, NPO FOR NOW AND FOR SWALLOW EVAL TOMORROW MORNING NOTED AND CARRIED OUT
--- NOTE | 2019-11-06 03:00 | NUR ---
RN NOTES TRY TO ASSESS PT FOR [facility] STROKE SCALE BUT PT IS ONLY SHOUTING AND NOT FOLLOWING ANY COMMAND SOMETIME PT JUST CLOSE HIS MOUTH AND DO NOTING, WILL TRY AGAIN TO ASSESS PT FOR [facility] STROKE SCALE ONCE HE BECOME COOPERATIVE
--- NOTE | 2019-11-06 03:45 | NUR ---
RN NOTES PT IS KEEP ON SHOUTING AND TRYING TO GET OUT OF THE BED, KEPT REMINDING HIM THAT HE IS ON HOSPITAL BUT HE KEEP ON SHOUTING INFORM THE ONCALL DOCTOR WITH ORDER OF ATIVAN 1MG IV Q4 PRN NOTED AND CARRIED OUT
[2019-11-06] MEDS: LORAZEPAM INJ 2 MG/ML VIAL IV PRN ×3 (03:51→18:08)
--- NOTE | 2019-11-06 06:50 | NUR ---
RN CLOSING NOTES PT ON BED AWAKE AND AGITATED, QUIET KA[place]LYN, STILL ON BILATERAL WRIST SOFT RESTRAINTS, NO SIGN AND SYMPTOMS OF RESPIRATORY DISTRESS NOTED, STILL VERY UNCOOPERATIVE, TELE MONITOR READS SINUS RHYTHM DROPLET ISOLATION MAINTAINED FOR R/O COVID, SAFETY MEASURE OBSERVED WILL ENDORSED TO AM SHIFT NURSE
[2019-11-06] MEDS: PANTOPRAZOLE 40 MG TABLET.DR PO SCH (07:30)
--- NOTE | 2019-11-06 07:35 | NUR ---
RN OPENING NOTES RECEIVED PT IN BED, PT IS AWAKE AND AGITATED, PATIENT OPENS EYES AND IS UNCOOPERATIVE. PATIENT IS ON ROOM AIR SAT 98% . NOTED NPO DUE TO SWALLOW EVAL. NOTED BILATERAL WRIST SOFT RESTRAINTS, NO SIGN AND SYMPTOMS OF RESPIRATORY DISTRESS. TELE MONITOR READS SINUS RHYTHM. SAFETY MEASURES IN PLACE. DROPLET ISOLATION MAINTAINED FOR R/O COVID, BED IS LOCKED AND IN LOWEST POSITION. WILL CONTINUE TO MONITOR.
[2019-11-06] MEDS: ASPIRIN 81 MG TAB.CHEW PO SCH (08:16)
--- NOTE | 2019-11-06 08:16 | NUR ---
RN NOTES PT IS NPO, WILL NO ADMINISTER PO MED. CHARGE NURSE AWARE.
[2019-11-06] MEDS: ENOXAPARIN SODIUM 40 MG/0.4 ML DISP.SYRIN SQ SCH (09:05)
--- NOTE | 2019-11-06 11:41 | NUR ---
RN NOTES MY [facility] STROKE SCALE INTERVENTION IS NOT EFFECTIVE , PATIENT UNCOOPERATIVE.
[2019-11-06] MEDS: IV NS 0.9% 1,000 ML IV PRN (12:39)
[2019-11-06] MEDS: hydrALAZINE HCL 10 MG TABLET PO SCH ×3 (12:49→21:51)
[2019-11-06 13:35] LABS: IRON, SERUM 74 ug/dl (50-175); TOTAL IRON BINDING CAPACITY 742 ug/dl (250-450)
[2019-11-06 13:56] LABS: FERRITIN 349 ng/mL (8-388)
--- NOTE | 2019-11-06 14:57 | NUR ---
2:00pm associate director career services consult requested by Tiara Deal DO for stroke protocol. Per MD notes, patient is an 83-year-old male who presents to the emergency department status post witnessed syncopal episode. Per diaphragm builder Sunn patient is currently confused and unable to participate in a meaningful conversation at this time. Unable to complete social studies department chair consultation, but this SW will be available to follow-up with the patient, as needed.
--- NOTE | 2019-11-06 18:56 | NUR ---
RN CLOSING NOTES WILL ENDORSE TO PM NURSE FOR MARIANN. PT IN BED, PT IS AWAKE AND AGITATED, PATIENT OPENS EYES AND IS UNCOOPERATIVE. PATIENT IS ON ROOM AIR SAT 98% . NOTED BILATERAL WRIST SOFT RESTRAINTS, NO SIGN AND SYMPTOMS OF RESPIRATORY DISTRESS. TELE MONITOR READS SINUS RHYTHM. SAFETY MEASURES IN PLACE. DROPLET ISOLATION MAINTAINED FOR R/O COVID, BED IS LOCKED AND IN LOWEST POSITION.
--- NOTE | 2019-11-06 20:00 | NUR ---
RN OPENING NOTES RECEIVED PT IN BED, pt is lethargic and open eyes to light pain. pt on RA sating above 95%. PT HAS BILATERAL URRER EXTE RESTRAINT. SITTER AT BED SIDE, SAFETY MEASURES IN PLACE.
[2019-11-06] MEDS: ATORVASTATIN 10 MG TABLET PO SCH ×2 (21:09→21:52)
[2019-11-06] MEDS: LEVETIRACETAM (250 MG) 250 MG TABLET PO SCH ×2 (21:09→21:51)
--- NOTE | 2019-11-06 21:52 | NUR ---
RN NOTE MEDICATIONS NON ADMINISTERED. PT WAS NOT ABLE TO SWALLOW. SINCE CRUSHED, DID NOT RETURN TO OMNICELL.
--- NOTE | 2019-11-06 22:45 | NUR ---
MERCERIZING RANGE FEEDERBUTCHER'S ASSISTANT NOTES RECEIVED PT FROM [facility]OX[facility] VIA GURNEY. PT OPENS AND MAKES GARBLED SOUNDS. RESPIRATIONS EVEN AND UNLABORED WITH NO S/S OF ACUTE DISTRESS OR SOB NOTED. NO S/S OF PAIN AT THIS TIME. PT NOTED WITH GABRIELEAND#20G PATENT AND INTACT. SAFETY MEASURES IN PLACE WITH BED IN LOWEST LOCKED POSITION WITH SIDE RAILS UP X2. CALL LIGHT WITHIN REACH. WILL CONTINUE TO MONITOR.
[2019-11-07] VITALS (7 sets, daily range): BP systolic 142–177; BP diastolic 89–108
[2019-11-07] MEDS: IV NS 0.9% 1,000 ML IV PRN ×2 (02:53→11:20)
[2019-11-07 07:37] LABS: EOSINOPHILS % (AUTO) 0.8 % (0.0-6.0); HEMATOCRIT 41 % (39-51); HEMOGLOBIN 13.7 g/dL (13.5-17.5); LYMPHOCYTES # (AUTO) 2.1 /CMM (0.8-4.8); LYMPHOCYTES % (AUTO) 48.6 % (20.0-44.0); MEAN CORPUSCULAR HGB CONC 33 g/dl (31.0-36.0); MEAN CORPUSCULAR VOLUME 94 fL (80-96); MONOCYTES # (AUTO) 0.8 /CMM (0.1-1.30); MONOCYTES % (AUTO) 19.1 % (2.0-12.0); NEUTROPHILS # (AUTO) 1.3 /CMM (1.8-8.9); NEUTROPHILS % (AUTO) 30.5 % (43.0-81.0); PLATELET COUNT (AUTO) 206 /CMM (150-450); RED BLOOD CELL COUNT(AUTO) 4.38 MIL/uL (4.5-6.0); WHITE BLOOD COUNT (AUTO) 4.3 K/uL (4.3-11.0)
--- NOTE | 2019-11-07 07:38 | NUR ---
MARGARINE CHURN OPERATOR NOTES PT IN BED RESTING. PT OPENS AND MAKES GARBLED SOUNDS. RESPIRATIONS EVEN AND UNLABORED WITH NO S/S OF ACUTE DISTRESS OR SOB NOTED THROUGHOUT SHIFT. NO S/S OF PAIN AT THIS TIME. PT NOTED WITH RHAND#20G PATENT AND INTACT INFUSING NS @125CC/HR. SAFETY MEASURES IN PLACE WITH BED IN LOWEST LOCKED POSITION WITH SIDE RAILS UP X2. CALL LIGHT WITHIN REACH. WILL ENDORSE TO ONCOMING NURSE FOR MARIANN.
[2019-11-07 07:40] LABS: ALBUMIN 2.7 g/dL (3.4-5.0); BILIRUBIN,TOTAL 0.9 mg/dL (0.2-1.0); CALCIUM, SERUM 9.3 mg/dL (8.5-10.1); CREATININE 0.8 mg/dL (0.6-1.3); MAGNESIUM 1.9 mg/dL (1.8-2.4); PHOSPHORUS 3.2 mg/dL (2.5-4.9); TOTAL PROTEIN, SERUM 8.9 g/dL (6.4-8.2)
--- NOTE | 2019-11-07 08:00 | NUR ---
m/s steel placer: notes received pt in bed awake, alert to name only with confusion and disorientation to time, place, and situation. leticia wrist restraints on and released for adl's and breakfast. admitting office escort at bedside assisting. will continue to monitor.
[2019-11-07] MEDS: ASPIRIN 81 MG TAB.CHEW PO SCH (09:00)
--- NOTE | 2019-11-07 09:00 | NUR ---
m/s extruding department supervisor: notes pt resistive to care, unable to keep still. reality orientation provided prn. will continue to monitor.
[2019-11-07 09:15] LABS: LYMPHOCYTES % (MANUAL) 48 % (16-48); MONOCYTES % (MANUAL) 26 % (0-11.0); NEUTROPHILS % (MANUAL) 26 (42-76)
[2019-11-07] MEDS: PANTOPRAZOLE 40 MG TABLET.DR PO SCH (09:22)
--- NOTE | 2019-11-07 10:00 | NUR ---
m/s address change clerk: notes released and repositioned leticia soft wrist restraint for circulation and adl's. pt remains confused and disoriented to time, place, and situation. reality orientation provided prn. will continue to monitor.
[2019-11-07] MEDS ORDERED: LEVETIRACETAM (250 MG) 250 MG TABLET PO SCH (10:08)
[2019-11-07] MEDS: ENOXAPARIN SODIUM 40 MG/0.4 ML DISP.SYRIN SQ SCH (11:19)
--- NOTE | 2019-11-07 12:00 | NUR ---
m/s butcher meat: notes pt likes only sweet staff. pudding, apple sauce, and ice cream given. pt refused to eat his puree diet, spits them out. reality orientation provided prn. will continue to monitor.
[2019-11-07] MEDS: hydrALAZINE HCL 10 MG TABLET PO SCH ×2 (12:47→21:31)
[2019-11-07] MEDS: LORAZEPAM INJ 2 MG/ML VIAL IV PRN ×2 (12:47→20:39)
--- NOTE | 2019-11-07 12:47 | NUR ---
m/s computerized table cutter: notes pt very restless, yelling/screaming and climbing out of bed despite leticia soft wrist restraints on. released and repositioned, kept comfortable. ativan 1mg ivp given by rn. will continue to monitor.
--- NOTE | 2019-11-07 14:00 | NUR ---
tele title camera operator: neuro f/u seen by dr. thorpe and says i will call andrey (alba) to resume his haldol.
--- NOTE | 2019-11-07 14:00 | NUR ---
m/s trade facilitator: notes released and repositioned leticia soft wrist restraint for circulation and adl's. pt remains confused and disoriented to time, place, and situation. reality orientation provided prn. will continue to monitor.
--- NOTE | 2019-11-07 15:09 | NUR ---
m/s valve tester: notes received verbal order from andrey (acnp) to continue his haldol that was previously held, per dr. thorpe (neuro) okay to resume his haldol as stated. order carried out.
--- NOTE | 2019-11-07 16:00 | NUR ---
m/s clother in: notes released and repositioned leticia soft wrist restraint for circulation and adl's. pt remains confused and disoriented to time, place, and situation. reality orientation provided prn. will continue to monitor.
[2019-11-07] MEDS: HALOPERIDOL 1 MG TABLET PO SCH (16:15)
[2019-11-07] MEDS: DOCUSATE SODIUM 250 MG CAPSULE PO SCH (17:00)
[2019-11-07] MEDS ORDERED: DOCUSATE SODIUM 100 MG CAPSULE PO SCH (17:00)
--- NOTE | 2019-11-07 17:26 | NUR ---
This SW attempted to follow-up on the long term care social worker consult requested by Tiara Deal DO for stroke protocol. Patient is an 83-year-old male who presented to the emergency department status post witnessed syncopal episode. Patient is alert and oriented x1. Patient opened his eyes but did not speak or make any movements while this SW was in the room. Unable to complete long term care social worker consultation, but this SW will be available to follow-up with the patient, as needed.
--- NOTE | 2019-11-07 18:00 | NUR ---
m/s county coroner: notes released and repositioned leticia soft wrist restraint for circulation and adl's. pt remains resistive with adl's and incontinency care. pt remains confused and disoriented to time, place, and situation. reality orientation provided prn. needs attended. will continue to monitor.
--- NOTE | 2019-11-07 18:30 | NUR ---
m/s boiler attendant: notes complete bed linen change due to incontinency. kept clean and dry. good pericare rendered. needs attended. will continue to monitor.
--- NOTE | 2019-11-07 19:00 | NUR ---
m/s hide measuring machine operator: notes report given to edward (rn) for continuity of care.
--- NOTE | 2019-11-07 20:00 | NUR ---
MS RN OPENING NOTE: Patient in bed awake, trying to get out of bed. Reoriented patient to his bed, the room, and the call light. Educated patient on the use of call light for assistance. Patient on room air and breathing well, no SOB, no respiratory distress noted, breathing is even and unlabored. Noted IV access on left AC 20g, patent, no redness, or infiltration. Noted bilateral soft restraints. Pulse present on bilateral upper extremity, +2, cap refill <3 seconds. No signs of bruising or swelling. Safety precaution is in place, bed in the lowest level, bed is locked, alarm is on, and call light is within reach. Will continue to monitor.
--- NOTE | 2019-11-07 20:39 | NUR ---
MS RN NOTE: Patient showing signs of anxiety,yelling and screaming. Spoke to patient to see what he needed. Patient unable to verbalize his needs. Redirected patient's behavior but patient kept yelling. Administered PRN Ativan per MD order. Will continue to monitor.
[2019-11-07] MEDS: LEVETIRACETAM (250 MG) 250 MG TABLET PO SCH (21:31)
[2019-11-07] MEDS: TAMSULOSIN 0.4 MG CAP.SR.24H PO SCH (21:31)
[2019-11-07] MEDS: ATORVASTATIN 10 MG TABLET PO SCH (21:31)
--- NOTE | 2019-11-07 22:00 | NUR ---
MS RN NOTE: Patient 1998 BP 177/10, HR 94. Administered scheduled Hyrdralazine 10mg. Rechecked BP and HR, still elevated BP 167/95 HR 116. Rechecked with manually, BP 170/108. Made Vianey ABAD, Say, aware. Awaiting reply.
--- NOTE | 2019-11-07 23:23 | NUR ---
MS RN NOTE: Made Epic aware of patient's elevated BP. Epic , Say, ordered Clonidine .1 po q8h prn sbp over 160. Read order back and carried out.
[2019-11-07] MEDS: CLONIDINE HCL 0.1 MG TABLET PO PRN (23:56)
--- NOTE | 2019-11-07 23:56 | NUR ---
MS RN NOTE: Patient BP 170/108. Administered PRN Clonidine per MD order. Will continue to monitor.
[2019-11-08 01:07] VITALS: BP 126/81
--- NOTE | 2019-11-08 01:08 | NUR ---
MS RN NOTE: Reassessed BP and HR. BP 126/81, HR 99. Will continue to monitor.
[2019-11-08 05:25] VITALS: BP 134/80
[2019-11-08] MEDS: hydrALAZINE HCL 10 MG TABLET PO SCH ×3 (05:25→22:03)
[2019-11-08] MEDS: IV NS 0.9% 1,000 ML IV PRN (05:48)
[2019-11-08 06:23] LABS: BASOPHILS % (AUTO) 0.3 % (0.0-2.0); EOSINOPHILS % (AUTO) 0.9 % (0.0-6.0); HEMATOCRIT 38 % (39-51); HEMOGLOBIN 12.6 g/dL (13.5-17.5); LYMPHOCYTES # (AUTO) 2.3 /CMM (0.8-4.8); LYMPHOCYTES % (AUTO) 50.7 % (20.0-44.0); MEAN CORPUSCULAR HGB CONC 33 g/dl (31.0-36.0); MEAN CORPUSCULAR VOLUME 94 fL (80-96); MONOCYTES % (AUTO) 23.1 % (2.0-12.0); NEUTROPHILS # (AUTO) 1.1 /CMM (1.8-8.9); PLATELET COUNT (AUTO) 189 /CMM (150-450); RED BLOOD CELL COUNT(AUTO) 4.07 MIL/uL (4.5-6.0); WHITE BLOOD COUNT (AUTO) 4.5 K/uL (4.3-11.0)
--- NOTE | 2019-11-08 06:43 | NUR ---
MS RN CLOSING NOTE: Patient in bed awake sleeping comfortably but easily aroused. Patient responds to name and touch. No SOB, no respiratory distress noted, breathing is even and unlabored. Safety precaution is in place, bed in the lowest level, bed is locked, alarm is on, and call light is within reach. Will endorse to next shift.
[2019-11-08] MEDS ORDERED: PANTOPRAZOLE 40 MG TABLET.DR PO SCH (07:30)
[2019-11-08] MEDS: PANTOPRAZOLE 40 MG TABLET.DR PO SCH (07:30)
[2019-11-08 07:35] LABS: BILIRUBIN,TOTAL 0.8 mg/dL (0.2-1.0); CALCIUM, SERUM 9.1 mg/dL (8.5-10.1); CREATININE 0.8 mg/dL (0.6-1.3); MAGNESIUM 1.7 mg/dL (1.8-2.4); PHOSPHORUS 3.2 mg/dL (2.5-4.9); POTASSIUM 3.4 mmol/L (3.5-5.1); TOTAL PROTEIN, SERUM 8.2 g/dL (6.4-8.2)
[2019-11-08 07:47] LABS: ALBUMIN 2.6 g/dL (3.4-5.0)
[2019-11-08 08:00] VITALS: BP 129/62
--- NOTE | 2019-11-08 08:00 | NUR ---
MS RN OPENING NOTES Received Patient asleep and resting in bed. A/O x 1. VS stable with no acute distress. Breathing even and unlabored on room air with no respiratory distress. Denies pain. No signs and symptoms of pain. 22g PIV on RFA intact, patent and flushing well with NS infusing at 125ml/hr. Safety precautions in place. Bed locked and set to lowest position with side rails x 2 up. All needs rendered at this time. Call light within reach. Will continue to monitor.
[2019-11-08] MEDS: DOCUSATE SODIUM 250 MG CAPSULE PO SCH ×2 (09:00→16:10)
[2019-11-08] MEDS: HALOPERIDOL 1 MG TABLET PO SCH ×3 (09:12→16:10)
[2019-11-08] MEDS: ASPIRIN 81 MG TAB.CHEW PO SCH (09:12)
[2019-11-08] MEDS: FINASTERIDE (5 MG) 5 MG TABLET PO SCH (09:12)
[2019-11-08] MEDS: LEVETIRACETAM (250 MG) 250 MG TABLET PO SCH ×2 (09:12→22:05)
[2019-11-08] MEDS: ENOXAPARIN SODIUM 40 MG/0.4 ML DISP.SYRIN SQ SCH (09:14)
[2019-11-08 09:25] LABS: EOSINOPHILS % (MANUAL) 1 % (0-4); LYMPHOCYTES % (MANUAL) 53 % (16-48); MONOCYTES % (MANUAL) 17 % (0-11.0); NEUTROPHILS % (MANUAL) 29 (42-76)
[2019-11-08] MEDS ORDERED: POTASSIUM CHLORIDE 20 MEQ TAB.PRT.SR PO SCH (10:00)
[2019-11-08] MEDS: Magnesium 1GM/D5W 100ML PREMIX 100 ML IV SCH ×2 (11:02→11:56)
[2019-11-08] MEDS: POTASSIUM CHLORIDE 20 MEQ POWDER PACKET PO SCH ×3 (11:56→13:39)
[2019-11-08 16:00] VITALS: BP 140/78
[2019-11-08] MEDS: LORAZEPAM INJ 2 MG/ML VIAL IV PRN (16:09)
--- NOTE | 2019-11-08 19:58 | NUR ---
MS RN CLOSING NOTES Patient resting in bed. A/O x 1. VS stable with no acute distress. Breathing even and unlabored on room air with no respiratory distress. Denies pain. No signs and symptoms of pain. 22g PIV on RFA intact, patent and flushing well Safety precautions in place. Bed locked and set to lowest position with side rails x 2 up. All needs rendered at this time. Call light within reach. Will endorse plan of care to oncoming shift.
[2019-11-08 20:00] VITALS: BP 142/68
--- NOTE | 2019-11-08 20:00 | NUR ---
RN NOTES FOUND PATIENT OUT OUT OF BED, UNSTEADY GAIT, CONFUSED, REFUSING TO GO BACK TO BED, COMBATIVE, HITTING RN WITH BED SHEET, URINATING ON THE FLOOR, PUT IN WHEELCHAIR, DENIES PAIN, NOT DUE FOR ATIVAN YET, FALL RISK. UP IN WHEELCHAIR, WILL CONTINUE TO MONITOR FOR SAFETY.
[2019-11-08] MEDS: TAMSULOSIN 0.4 MG CAP.SR.24H PO SCH (22:02)
[2019-11-08] MEDS: ATORVASTATIN 10 MG TABLET PO SCH (22:02)
[2019-11-09] MEDS: LORAZEPAM INJ 2 MG/ML VIAL IV PRN ×3 (02:04→21:20)
[2019-11-09] MEDS: hydrALAZINE HCL 10 MG TABLET PO SCH ×3 (05:02→20:23)
--- NOTE | 2019-11-09 06:49 | NUR ---
CONFUSED, COMBATIVE, IMPULSIVE, SCREAMING, WANTS TO LEAVE, BILATERAL WRIST RESTRAINTS, VS STABLE, HYDRALAZINE GIVEN, PUREED DIET, NO SKIN BREAKDOWN, GIVEN ATIVAN 1 MG X1, CALM AT THIS TIME, PSYCH CONSULT ORDERED, WILL REQUIRE 1:1 SITTER FOR SAFETY, NO AM LABS, CONTINUE SUPPORTIVE CARE.
--- NOTE | 2019-11-09 07:35 | NUR ---
RN NOTES RECEIVED PATIENT IN BED RESTING COMFORTABLY IN MODERATE HIGH BACK REST, A/O X1. SITTER AT BEDSIDE. NO SIGNS OF DISTRESS NOTED AT THIS TIME. IV ACCESS ON RFA#22, PER APPEALS WRITER PATIENT REFUSED IV FLUIDS, PATENT AND INTACT. SAFETY MEASURES IN PLACE, BED IN LOWEST LOCKED POSITION WITH SIDE RAILS UP X2. CALL LIGHT WITHIN EASY REACH. WILL CONTINUE TO MONITOR.
[2019-11-09] MEDS: DOCUSATE SODIUM 250 MG CAPSULE PO SCH ×2 (08:48→17:00)
[2019-11-09] MEDS: FINASTERIDE (5 MG) 5 MG TABLET PO SCH (08:49)
[2019-11-09] MEDS: PANTOPRAZOLE 40 MG TABLET.DR PO SCH (08:49)
[2019-11-09] MEDS: HALOPERIDOL 1 MG TABLET PO SCH ×3 (08:49→17:00)
[2019-11-09] MEDS: ASPIRIN 81 MG TAB.CHEW PO SCH (08:49)
[2019-11-09] MEDS: LEVETIRACETAM (250 MG) 250 MG TABLET PO SCH ×2 (08:49→20:22)
[2019-11-09] MEDS: ENOXAPARIN SODIUM 40 MG/0.4 ML DISP.SYRIN SQ SCH (08:50)
[2019-11-09] MEDS ORDERED: POTASSIUM CHLORIDE 20 MEQ TAB.PRT.SR PO ONE (09:30)
--- NOTE | 2019-11-09 18:50 | NUR ---
RN NOTES PATIENT IN BED RESTING COMFORTABLY IN MODERATE HIGH BACK REST, A/O X1. SITTER AT BEDSIDE. NO SIGNS OF DISTRESS NOTED THROUGHOUT THE SHIFT. IV ACCESS ON RFA#22, PER MANAGER PURCHASING PATIENT REFUSED IV FLUIDS, PATENT AND INTACT. SAFETY MEASURES IN PLACE, BED IN LOWEST LOCKED POSITION WITH SIDE RAILS UP X2. CALL LIGHT WITHIN EASY REACH. WILL ENDORSE TO MANAGER PURCHASING NURSE FOR MARIANN.
--- NOTE | 2019-11-09 19:10 | NUR ---
RN medsurwil opening notes Received Pt from morning nurse. Pt is alert and orientedX1, confused and agitated easily. Pt is resting in bed comfortably. Respiration is normal. No SOB. No S/S of distress noted. Pt doesn't have a sitter at this time. IV sites at RFA# 22 is clean, intact and flush without resistance. Pt refused IV fluids. Made aware risks and benefits. Pt keep refusing. Bilateral soft wrists restraints are intact, skin is warm to touch and circulation is checks. Safety precautions maintained. Bed at low position, HOB elevated, brakes locked, side rails upX3 and call light is within reach. Will continue to monitor.
[2019-11-09 20:00] VITALS: BP 155/88
[2019-11-09] MEDS: ATORVASTATIN 10 MG TABLET PO SCH (21:13)
[2019-11-09] MEDS: TAMSULOSIN 0.4 MG CAP.SR.24H PO SCH (21:13)
--- NOTE | 2019-11-09 21:20 | NUR ---
RN medsurg notes Pt is screaming, yelling, combative and non compliant. Administered ativan 1 mg/0.5 ml as ordered. Safety precautions is maintained. Pt doesn't have a sitter. Will continue to monitor.
[2019-11-09 21:43] VITALS: BP 138/94
[2019-11-10] MEDS: LORAZEPAM INJ 2 MG/ML VIAL IV PRN ×2 (02:00→22:17)
[2019-11-10] MEDS: hydrALAZINE HCL 10 MG TABLET PO SCH ×3 (04:31→22:11)
[2019-11-10 06:26] LABS: BASOPHILS % (AUTO) 0.7 % (0.0-2.0); EOSINOPHILS % (AUTO) 0.9 % (0.0-6.0); HEMATOCRIT 38 % (39-51); HEMOGLOBIN 12.7 g/dL (13.5-17.5); LYMPHOCYTES % (AUTO) 51.4 % (20.0-44.0); MEAN CORPUSCULAR HGB CONC 34 g/dl (31.0-36.0); MEAN CORPUSCULAR VOLUME 93 fL (80-96); MONOCYTES # (AUTO) 0.8 /CMM (0.1-1.30); MONOCYTES % (AUTO) 21.6 % (2.0-12.0); NEUTROPHILS % (AUTO) 25.4 % (43.0-81.0); PLATELET COUNT (AUTO) 168 /CMM (150-450); RED BLOOD CELL COUNT(AUTO) 4.07 MIL/uL (4.5-6.0); WHITE BLOOD COUNT (AUTO) 3.9 K/uL (4.3-11.0)
[2019-11-10 06:32] LABS: ALBUMIN 2.7 g/dL (3.4-5.0); BILIRUBIN,TOTAL 0.7 mg/dL (0.2-1.0); MAGNESIUM 1.7 mg/dL (1.8-2.4); PHOSPHORUS 2.9 mg/dL (2.5-4.9); POTASSIUM 4.1 mmol/L (3.5-5.1); TOTAL PROTEIN, SERUM 8.6 g/dL (6.4-8.2)
--- NOTE | 2019-11-10 06:40 | NUR ---
RN medsurg closing notes Pt is resting in bed comfortably. Respiration is normal. No SOB. No S/S of distress noted. VS is stable. Afebrile. Routine meds were given as ordered. IV sites at RFA# 22 is clean, intact and flush without resistance. Bilateral soft wrists restraints are intact, skin is warm to touch and circulation is checks. Kept Pt clean, dry and comfortable. All needs met and attended. Safety precautions maintained. Bed at low position, HOB elevated, brakes locked, side rails upX3 and call light is within reach. Will endorse to morning nurse for MARIANN.
[2019-11-10 08:00] VITALS: BP 176/107
[2019-11-10 08:02] LABS: LYMPHOCYTES % (MANUAL) 48 % (16-48); MONOCYTES % (MANUAL) 19 % (0-11.0); NEUTROPHILS % (MANUAL) 33 (42-76)
[2019-11-10] MEDS: HALOPERIDOL 1 MG TABLET PO SCH ×3 (08:07→17:11)
[2019-11-10] MEDS: ASPIRIN 81 MG TAB.CHEW PO SCH (08:07)
[2019-11-10] MEDS: PANTOPRAZOLE 40 MG TABLET.DR PO SCH (08:07)
[2019-11-10] MEDS: ENOXAPARIN SODIUM 40 MG/0.4 ML DISP.SYRIN SQ SCH (08:07)
[2019-11-10] MEDS: DOCUSATE SODIUM 250 MG CAPSULE PO SCH ×2 (08:07→17:11)
[2019-11-10] MEDS: FINASTERIDE (5 MG) 5 MG TABLET PO SCH (08:07)
[2019-11-10] MEDS: LEVETIRACETAM (250 MG) 250 MG TABLET PO SCH ×2 (08:08→22:10)
[2019-11-10] MEDS: CLONIDINE HCL 0.1 MG TABLET PO PRN (08:09)
--- NOTE | 2019-11-10 10:36 | NUR ---
m/s child care teacher: md visit seen and examined by dr. arizmendi with order for d'c planning to snf. case management making arrangement.
[2019-11-10] MEDS: Magnesium 1GM/D5W 100ML PREMIX 100 ML IV SCH ×2 (11:52→13:41)
--- NOTE | 2019-11-10 12:35 | NUR ---
m/s commercial sales director: notes report given to (brittani way) for continuity of care.
--- NOTE | 2019-11-10 12:36 | NUR ---
MS RN OPENING NOTES Received Patient resting in bed. A/O x 1. VS stable with no acute distress. Breathing even and unlabored on room air with no respiratory distress. Denies pain. No signs and symptoms of pain. 22g PIV on RFA intact, patent and flushing well. Safety precautions in place. Bilateral soft wrist restraints in place with clean and warm skin noted. Bed locked and set to lowest position with side rails x 2 up. Sitter at bedside. All needs rendered at this time. Call light within reach. Will continue to monitor.
[2019-11-10 16:00] VITALS: BP 137/79
--- NOTE | 2019-11-10 18:54 | NUR ---
MS RN CLOSING NOTES Patient resting in bed. A/O x 1. VS stable with no acute distress. Breathing even and unlabored on room air with no respiratory distress. Denies pain. No signs and symptoms of pain. 22g PIV on RFA intact, patent and flushing well with NS infusing at 50ml/hr. Safety precautions in place. Bilateral soft wrist restraints in place with clean and warm skin noted. Bed locked and set to lowest position with side rails x 2 up. Sitter at bedside. All needs rendered at this time. Call light within reach. Will endorse plan of care to oncoming shift.
--- NOTE | 2019-11-10 19:30 | NUR ---
MS/RN OPENING NOTES RECEIVED PATIENT IN BED RESTING. PATIENT IS ALERT AND ORIENTED X 1. PATIENT IS CONFUSED AND UNABLE TO FOLLOW SIMPLE COMMANDS. SOFT WRIST RESTRAINTS IN PLACE. BILATERAL EXTREMITIES SHOW GOOD CIRCULATION. PATIENT HAS RIGHT FOREARM #22G INTACT AND SECURED. PATIENT BREATHING IS EVEN AND UNLABORED, NO SIGNS OF SOB OR RESPIRATORY DISTRESS NOTED. NO PAIN NOTED. SAFETY MEASURES ARE IN PLACE, BED IS LOCKED AND PLACED IN THE LOWEST POSITION, SIDE RAILS UP X 3, CALL LIGHT WITHIN REACH. WILL CONTINUE TO MONITOR PATIENT.
[2019-11-10 20:00] VITALS: BP 146/89
[2019-11-10] MEDS: ATORVASTATIN 10 MG TABLET PO SCH (22:11)
[2019-11-10] MEDS: TAMSULOSIN 0.4 MG CAP.SR.24H PO SCH (22:11)
--- NOTE | 2019-11-10 22:20 | NUR ---
MS/RN NOTES PATIENT KEEP TRYING TO GET OUT OF BED AND PULLING LINES. PATIENT HAS BEEN YELLING NONSTOP AFTER REORIENTATION HAD BEEN DONE WITH FAILED ATTEMPTS. PATIENT HAS BECOME AGITATED. ATIVAN IV 1 MG WAS ADMINISTERED. WILL CONTINUE TO MONITOR.
--- NOTE | 2019-11-11 00:30 | NUR ---
MS/RN NOTES TRANSFERRED PATIENT TO ROOM 309-1. PATIENT TRANSFERRED VIA BED, NO INJURIES DURING TRANSFER. PATIENT IN STABLE CONDITION. PATIENTS SOFT WRIST RESTRAINTS HAVE BEEN RELEASED. PATIENT HAS A SITTER IN ROOM. WILL CONTINUE TO MONITOR.
[2019-11-11] MEDS: IV NS 0.9% 1,000 ML IV PRN (04:50)
[2019-11-11] MEDS: hydrALAZINE HCL 10 MG TABLET PO SCH ×2 (05:00→11:48)
--- NOTE | 2019-11-11 06:30 | NUR ---
MS/RN CLOSING NOTES PATIENT IN BED SLEEPING. PATIENT IS ALERT AND ORIENTED X 1. PATIENT IS CONFUSED AT TIMES. SOFT WRIST RESTRAINTS HAVE BEEN REMOVED AT 0030HOURS. PATIENT HAS SITTER. BILATERAL EXTREMITIES SHOW GOOD CIRCULATION. PATIENT HAS RIGHT FOREARM #22G INTACT RUNNING NS AT 75ML/HR. PATIENT BREATHING IS EVEN AND UNLABORED, NO SIGNS OF SOB OR RESPIRATORY DISTRESS NOTED. NO PAIN NOTED. ALL PATIENTS NEEDS HAVE BEEN MET DURING SHIFT. SAFETY MEASURES ARE IN PLACE, BED IS LOCKED AND PLACED IN THE LOWEST POSITION, SIDE RAILS UP X 3, CALL LIGHT WITHIN REACH. WILL ENDORSE CARE TO DAY SHIFT.
[2019-11-11 07:01] LABS: CALCIUM, SERUM 9.2 mg/dL (8.5-10.1); CREATININE 0.9 mg/dL (0.6-1.3); MAGNESIUM 1.9 mg/dL (1.8-2.4); POTASSIUM 3.6 mmol/L (3.5-5.1)
[2019-11-11 08:00] VITALS: BP 134/90
--- NOTE | 2019-11-11 08:00 | NUR ---
R NOTES RECEIVED PATIENT IN THE BED A/O X1, AWAKE, ROOM AIR, NO ACUTE RESPIRATORY DISTRESS, V/S TAKEN STABLE, ASSIST BREAKFAST TOLERATED 25 % WITH HEEL PADDER. ADMINISTERED SCHEDULED MEDICATION, IV ACCESS ON RIGHT FA INTACT INFUSING NS AT 50ML/HR. ASSIST TURN AND REPOSTION Q 2 HR, 1:1 SITTER NEXT TO THE BED FOR SAFETY. SAFETY PRECAUTION MAINTAINED ALL THE TIME.
[2019-11-11] MEDS: HALOPERIDOL 1 MG TABLET PO SCH ×3 (10:18→18:57)
[2019-11-11] MEDS: ENOXAPARIN SODIUM 40 MG/0.4 ML DISP.SYRIN SQ SCH (10:19)
[2019-11-11] MEDS: DOCUSATE SODIUM 250 MG CAPSULE PO SCH ×2 (10:20→18:57)
[2019-11-11] MEDS: ASPIRIN 81 MG TAB.CHEW PO SCH (10:20)
[2019-11-11] MEDS: LEVETIRACETAM (250 MG) 250 MG TABLET PO SCH (10:21)
[2019-11-11] MEDS: FINASTERIDE (5 MG) 5 MG TABLET PO SCH (10:22)
[2019-11-11] MEDS: PANTOPRAZOLE 40 MG TABLET.DR PO SCH (10:34)
--- NOTE | 2019-11-11 12:14 | NUR ---
RN notes: pt stable at this time, ate lunch w/assistance of SLATE CUTTER, total care, no pain noted at this time, 1 to 1 sitter @ bedside for safety. will continue to monitor.
[2019-11-11 16:00] VITALS: BP 140/97
--- NOTE | 2019-11-11 18:00 | NUR ---
RN NOTES; PT STABLE, V/S W/IN STABLE LIMITS, WILLING TO D/C TO SNF 1999, ADMINISTERED SCHEDULED MEDICATION PT TOLERATED DINNER ASSISTED BY LEARNING SUPPORT AIDE. ASSIST RE-POSITION W/IN 2 HOURS, CALL LIGHT W/IN REACH, ENDORSED TO ONCOMING RN FOR F/U PLAN OF CARE.
--- NOTE | 2019-11-11 19:30 | NUR ---
MS RN OPENING NOTES RECEIVED PATIENT RESTING IN BED COMFORTABLY; SITTER AT BEDSIDE; A/OX1, CONFUSED; BREATHING EVEN AND UNLABORED; NO SOB NOTED; TOLERATING ROOM AIR WELL; R FA # 22 INTACT AND PATENT, FLUSHING WELL; PER AM SHIFT, PATIENT READY FOR DISCHARGE; WILL SPEAK WITH ARTEMIO HERNANDEZ FOR REPORT; PER AM SHIFT, EMT ARRIVING APPROX 2000 FOR WEB APPLICATION TESTER; SAFETY PRECAUTIONS IMPLEMENTED; BED LOCKED IN LOW POSITION; SIDE RAILSX3, WILL CONT TO MONITOR
--- NOTE | 2019-11-11 20:02 | NUR ---
MS PHYSICIAN OFFICE ASSISTANT NOTES EMT STAFF PRESENT AT BEDSIDE FOR INKER; SPOKE WITH KELL PARKER FROM [facility]; PATIENT OKAY TO BE TRANSFERRED; DISCHARGE PAPERWORK GIVEN TO EMT STAFF; VITALS STABLE BP: 146/77 HR: 104 RR: 18 SPO2: 97% TEMP: 97.5F R FA # 22 IV SITE, REMOVED; IV TIP INTACT, NO S/S OF BLEEDING; ID BAND REMOVED; NO BELONGINGS REPORTED TO BE WITH PATIENT ON ADMISSION; EMT STAFF AND KELL PARKER FROM [facility] AWARE; PATIENT LEAVING UNIT, CHARGE NURSE AWARE
[2019-11-12 13:06] LABS: *SPE A/G RATIO 0.5 (0.7-1.7); *SPE ALBUMIN 2.7 g/dL (2.9-4.4); *SPE ALPHA-1-GLOBULIN 0.3 g/dL (0.0-0.4); *SPE ALPHA-2-GLOBULIN 0.7 g/dL (0.4-1.0); *SPE BETA GLOBULIN 1.2 g/dL (0.7-1.3); *SPE GLOBULIN, TOTAL 5.2 g/dL (2.2-3.9); *SPE M-SPIKE Not Observed g/dL (Not Observed); *SPEGAMMA GLOBULIN 2.9 g/dL (0.4-1.8)
== END 2019-11-11 20:00 | DRG 45 ==
LOC: ER 22:42 → TELE1 23:25 → TELE 11-06 21:30 → MED 11-07 08:37
PROVIDERS: ADMIT Student in an Organized Health Care Education/Training Program
DX: I63.81 Other cerebral infarction due to occlusion or stenosis of small artery (principal); N17.0 Acute kidney failure with tubular necrosis; G93.41 Metabolic encephalopathy; E43 Unspecified severe protein-calorie malnutrition; K72.00 Acute and subacute hepatic failure without coma; R40.2212 Coma scale, best verbal response, none, at arrival to emergency department; E86.0 Dehydration; E03.9 Hypothyroidism, unspecified; Z59.0 Homelessness; R74.0 Nonspecific elevation of levels of transaminase and lactic acid dehydrogenase [LDH]; F20.9 Schizophrenia, unspecified; F17.210 Nicotine dependence, cigarettes, uncomplicated; G40.909 Epilepsy, unspecified, not intractable, without status epilepticus; I10 Essential (primary) hypertension; Z86.73 Personal history of transient ischemic attack (TIA), and cerebral infarction without residual deficits; R55 Syncope and collapse; N40.0 Benign prostatic hyperplasia without lower urinary tract symptoms; E88.09 Other disorders of plasma-protein metabolism, not elsewhere classified; Z68.20 Body mass index [BMI] 20.0-20.9, adult; R40.2362 Coma scale, best motor response, obeys commands, at arrival to emergency department; R40.2142 Coma scale, eyes open, spontaneous, at arrival to emergency department; R29.703 NIHSS score 3; F39 Unspecified mood [affective] disorder; F29 Unspecified psychosis not due to a substance or known physiological condition
CPT/HCPCS: 36415; 70450-TC; 71045-TC; 80048-TC; 80053-TC; 80061-TC; 80076-TC; 82728-TC; 83540-TC; 83735-TC; 84100-TC; 84155; 84165; 84439-TC; 84443-TC; 84484-TC; 85025-TC; 85730-TC; 87081-TC; 92526; 92611-TC; 93307-TC; 93880-TC; 97110-TC; 97530-TC; 97535-TC; G0378; J1650; J2060; J3475; J7030; U0003